=== PATIENT | male | born 1940 | race Caucasian/White ===

== ENCOUNTER → 2020-12-02 10:23 | Outpatient (BNVA) | payer OTHER, MEDICAID, SELFPAY | PROVIDERS: Family Provider Internal Medicine; PCP Internal Medicine Cardiovascular Disease; Visit Provider Urology | DX: N40.1 Benign prostatic hyperplasia with lower urinary tract symptoms (principal); N13.8 Other obstructive and reflux uropathy; R31.9 Hematuria, unspecified | CPT/HCPCS: 80048; 81003; 87086; 88112 ==

== ENCOUNTER 2020-12-23 12:52 | Outpatient (CLI) | payer MEDICARE, MEDICAID, SELFPAY ==
--- NOTE | 2020-12-23 13:30 | CT_ITS ---
WS: [id number] CT ABDOMEN PELVIS TECHNIQUE: Noncontrast CT of the abdomen and contrast-enhanced CT of the abdomen and pelvis with maria guadalupe nal and sagittal reformatted images. CLINICAL INFORMATION: INCREASED PSA AND BPH COMPARISON: None. DLP: 3999.[address] scans at [facility] use at least one of these dose optimization techniques: automat ed exposure control; mA and/or kV adjustment per patient size (includes targeted exams where dose is matched to clinical indication); or iterative reconstruction. FINDINGS: Heterogeneous enlarged prostate with indentation on the bladder measuring 5.4 x 5.5 CM. Prostate is h eterogeneous enhancing and nodular. Thickening of the seminal vesicles bilaterally. Diffuse bladder w all thickening consistent with bladder outlet obstruction. Indeterminate prominent 10 millimeter righ t periprostatic lymph node. Mild diffuse fatty infiltration liver. Splenic granulomas. Normal GE junction. Slight atelectasis in the lung bases. Normal portal vein and splenic vein. Cholelithiasis. No gallbladder wall thickening. Prominent calculus at the gallbladder neck measuring 2.0 cm. Adrenal glands are normal. Normal renal parenchymal enhancement. No hydronephrosis. No obstructing renal or ureteral calculi. Sigmoid diverticulosis. No evidence of acute diverticulitis. Normal appendix in the right lower quadr ant. Fatty atrophy of the pancreas. Mild pancreatic ductal dilatation. Pancreatic calcifications. Nor mal caliber abdominal aorta. Mild aortic calcification. No periaortic lymphadenopathy. No inguinal ly mphadenopathy. Moderate spondylitic changes lumbar spine. CT/CT abdomen pelvis wo/w [id number] IMPRESSION: 1. Enlarged enhancing nodular prostate with indentation on the bladder. Prosta te measures5.4 x 5.5 CM. Recommend correlation PSA. 2. Diffuse thickening of the seminal vesicles bilaterally. Indeterminate promi nent right periprostatic lymph node measuring 10 mm. 3. Cholelithiasis with prominent gallstone in the gallbladder neck measuring 2 cm. No gallbladder wall thickening. Gallbladder can be followed up with ultras ound. 4. Normal renal parenchymal enhancement. No hydronephrosis. Normal excretion o n the delayed imaging. 5. Mild diffuse bladder wall thickening consistent with bladder outlet obstruc tion.
[2020-12-23] MEDS: iohexol 300 mg/mL 100 mL Btl IV (13:53)
[2020-12-23 13:56] LABS: Anion Gap 16.7 (5-19); Blood Urea Nitrogen 7 mg/dL (8-23); Calcium 8.5 mg/dL (8.5-10.5); Carbon Dioxide 22 mmol/L (22-29); Chloride 87 mmol/L (98-107); Glucose 94 mg/dL (65-115); Osmolality Calculated 250 mOsm/kg (285-295); Potassium 4.7 mmol/L (3.5-5.1); Sodium 121 mmol/L (136-145)
== END 2020-12-23 12:53 | disposition home or self-care (01) ==
LOC: RAD 13:01
PROVIDERS: PCP Internal Medicine; Visit Provider Urology
DX: R97.20 Elevated prostate specific antigen [PSA] (principal); N40.1 Benign prostatic hyperplasia with lower urinary tract symptoms; N13.8 Other obstructive and reflux uropathy; N40.0 Benign prostatic hyperplasia without lower urinary tract symptoms; K80.20 Calculus of gallbladder without cholecystitis without obstruction; K80.80 Other cholelithiasis without obstruction
CPT/HCPCS: 36415; 74178; 80048; 84153

== ENCOUNTER 2020-12-31 12:44 | Emergency (ER) | payer MEDICARE, MEDICAID, SELFPAY ==
[2020-12-31] VITALS (8 sets, daily range): BP systolic 84–143; BP diastolic 46–64; PULSE 86–102; RESP 16–22; TEMP 36.4–36.9; O2SAT 92–99; BMI 30.6
--- NOTE | 2020-12-31 13:09 | ECG_ITS ---
[facility] ED Test Date: 2020-12-31 Pat Name: Toro Peralta Department: Room: Gender: Male Recreation Program Coordinator: : 1940 Requested By: Mayur Peacock Order Number: [id number] Ric MD: Oralia Daigle M.D. Measurements Intervals [place] Rate: 86 P: 54 [place]: 185 QRS: 59 QRSD: 85 T: 69 QT: 331 QTc: 396 Interpretive Statements SINUS RHYTHM Compared to ECG 10/24/2017 09:22:45 Ventricular premature complex(es) no longer present Electronically Signed On 01-01-2021 13:57:56 CDT by Oralia Daigle M.D. [id number]
--- NOTE | 2020-12-31 13:09 | XRR_ITS ---
PROCEDURE INFORMATION: Exam: XR Chest Exam date and time: 12/31/2020 1:09 PM Age: 80 years old Clinical indication: Shortness of breath; Additional info: Rule out pna TECHNIQUE: Imaging protocol: XR of the chest. Views: 1 view. COMPARISON: CR Chest 1 [place] [id number] 10/24/2017 9:31 AM FINDINGS: Lungs: Low lung volumes are seen. The lungs are otherwise clear No consolidation. Pleural spaces: Unremarkable. No pleural effusion. No pneumothorax. Heart/Mediastinum: Unremarkable. No cardiomegaly. Bones/joints: Unremarkable. XR/XR chest 1V portable [id number] IMPRESSION: No acute findings.
--- NOTE | 2020-12-31 13:13 | CT_ITS ---
WS: [id number] CT HEAD NONCONTRAST HISTORY: altered mental status TECHNIQUE: Contiguous axial imaging performed through the brain in 2.5 mm imaging. Bone and soft tiss ue windows. Sagittal and coronal reformats reviewed. All CT scans at [facility] use at le ast one of these dose optimization techniques: automated exposure control; mA and/or kV adjustment pe r patient size (includes targeted exams where dose is matched to clinical indication); or iterative r econstruction. DLP: 986.45 mGy.cm COMPARISON: 08/28/2017 No acute intracranial hemorrhage, midline shift or mass effect. Moderate atrophy and moderate small vessel ischemic changes. No evidence for an acute infarct. Ventricles: Ventricles and extra-axial spaces are very mildly prominent on the basis of atrophy. Paranasal sinuses: As visualized are clear. Mastoid air cells: Well pneumatized. Calvarium and scalp: No skull fracture. Soft tissue calcifications in the scalp. CT/CT head wo con* [id number] IMPRESSION: 1. No acute intracranial hemorrhage or edema. 2. Moderate atrophy and moderate small vessel ischemic changes. No acute findi ngs.
--- NOTE | 2020-12-31 13:16 | W.ED.RECABL ---
HPI - Recheck/Abnormal Lab/Rx General: Chief Complaint: Recheck/Abnormal Lab/Rx Stated Complaint: ABNORMAL LAB VALUES Time Seen by Provider: 12/31/20 12:49 History of Present Illness: HPI narrative: Patient is an 80-year-old male history of BPH presenting to the ED from [facility] for concerns of altered mental status x3 days. Per care home, patient patient has had reportedly low sodium level in the 120s for the last 3 days. In addition, patient has not been acting like himself. Earlier today, care home staff went to check on the patient noticed that patient had low blood pressure. EMS was alerted and patient was transferred to our hospital for evaluation. On arrival, history is limited by baseline cognitive status. Review of Systems Narrative: Unable to assess given unerlying cognitive impairment and physiological process PFS ED PFSH: Medical History (Updated 12/31/20 @ 15:08 by Mayur Peacock MD) BPH w urinary obs/LUTS Elevated PSA Hypertension Surgical History H/O cataract extraction BILATERAL H/O elbow surgery RIGHT H/O knee surgery LEFT H/O neck surgery H/O shoulder surgery Family History Mother , AT AGE 80 Hypertension Father , AT AGE 82 Heart disease Social History Alcohol intake: current Alcohol intake frequency: holidays/special occasions only Housing: Long-Term Marital status: Current occupational status: retired History of recent travel: No Physical Exam Narrative: EXAM NARRATIVE: Head: Atraumatic Eyes: PERRL, conjunctiva without injection ENT: Dry mucous membrane NECK: Supple without lymphadenopathy LUNGS: Coarse breath sonds b/l CV: RRR ABDOMEN: Soft, nontender in all quadrants, no guarding or rebound tenderness EXTREMITY: Normal ROM SKIN: Mild erythema over lower back NEURO: Awake and alert, moving extremities, occasionally answering questions and following commands, somnolent, GCS 13-14 PSYCH:Unable to assess BACK: No focal midline tenderness, no induration/erythema/obvious deformity, +mild intergluteal erythem/lumbar skin atophy and erythema without any signs of fluctuance or induration Procedures Central Line Placement Right IJ: Time Out Performed: Yes Patient Placed on Monitor/Pulse Ox: Yes MD Prep: mask Central Line Prep: Povidone-Iodine 1% Local Anesthetic: lidocaine 1% Amount of anesthesia used (mL): 4 Ultrasound Used for Placement: Yes Central Line Lumen Inserted: triple Post Procedure: sutured in place and good blood return Post Procedure X-Ray: tip of catheter in good position Patient Tolerated Procedure: well Complications: none Course Vital Signs: Vital signs: Vital Signs Temperature 98.4 F 12/31/20 19:54 Pulse Rate 88 12/31/20 19:54 Respiratory Rate 16 12/31/20 19:54 Blood Pressure 143/64 12/31/20 19:54 Pulse Oximetry 98 12/31/20 19:54 MDM - Recheck/Abnormal Lab/Rx MDM Narrative: Medical decision making narrative: Patient is an 80-year-old male with a history of BPH, chronic dementia, hypertension, recent hyponatriemia (120s x 3 days) to the emergency room for evaluation of altered mental status. On arrival, patient is to be confused and somnolent. Blood pressure of 80/40 on repeated reading patient is noted to be nearly tachycardic to the 100s with increased work of breathing, coarse breath sounds. Concern for sepsis, decision was started immediately to give patient fluids. Patient received 1 L of fluid. Patient was started on peripheral norepinephrine before a right IJ central line was placed for which patient started on 10 mcg of norepinephrine. Patient received empirically vancomycin and cefepime. Sodium was noted to be 122 consistent with prior presentation for the last [address] did not show any signs of acute vasogenic edema or brain bleed. XR chest negative for any consolidations or infiltrates. UA is consistent with UTI. Laboratory evaluation is significant for a lactic of 4, white count of 20, troponin elevation of 144, and proBNP of 4K. Cr of 4 and K of 5.6 consistent with mutisystem organ dysfunction and sepetic shock from sepsis likely urosepsis. On reassessment, patient is hemodynamically stable with blood pressure of >90SBP. He is more awake and alert currently. No increased work of breathing or desats. Decision was made to not intubate patient given history of DNR. Case was discussed with care home and family who agrees with transfer to [facility] in [place], [place] per conversation with Dr. Keven Chacon. ON reassessment, CT abd did not show any acute pathologies. Chronic indwelling meyer replaced today given bladder distension. Lactic acid improving from 4.3 to 4.2 Disposition: transfer to outside ED Lab Data: Labs: Lab Results 12/31/20 12/31/20 12/31/20 Range/Units 13:22 13:22 13:22 WBC 20.6 H (4.0-10.0) 10^3/ uL RBC 4.47 (4.1-5.3) 10^6/u L Hgb 14.3 (11.7-16.6) g/dL Hct 41.1 L (42.0-52.0) % MCV 91.9 (80-94) fL MCH 32.0 (28.0-34.0) pg MCHC 34.8 (30.0-36.0) g/dL RDW 13.9 (12.1-15.1) % Plt Count 175 (130-400) 10^3/c mm MPV 10.1 (7.4-10.4) fL Neut % (Auto) 85.2 % Lymph % (Auto) 2.5 % Piute % (Auto) 10.2 % Eos % (Auto) 0.2 % Baso % (Auto) 0.8 % Neut # (Auto) 17.53 H (1.8-7.7) 10^3/u L Lymph # (Auto) 0.5 L (0.8-4.8) 10^3/u L [place]ute # (Auto) 2.1 H (0.2-0.9) 10^3/u L Eos # (Auto) 0.0 (0.0-0.8) 10^3/u L Baso # (Auto) 0.2 H (0.0-0.1) 10^3/u L Nucleated RBC % (a uto) 0 % Nucleated RBCs # 0.0 /100WBC Specimen Type Sample Site ABG pH (7.35-7.45) ABG pCO2 (35-45) mmHg ABG pO2 (80.0-100.0) mmH g ABG HCO3 (22-26) mmol/L ABG Base Excess (-2.0-2.0) mmol/ L Julius Test Hematocrit (42-52) % O2 Delivery Device O2 Liters/Min % FiO2 % Custom Harvester ID Sodium 122 L (136-145) mmol/L Potassium 5.6 H (3.5-5.1) mmol/L Chloride 86 L (98-107) mmol/L Carbon Dioxide 13 L (22-29) mmol/L Anion Gap 28.6 H (5-19) BUN 46 H (8-23) mg/dL Creatinine 4.6 H (0.7-1.2) mg/dL GFR Calculation Not Reportable Glucose 101 (65-115) mg/dL Calculated Osmolal ity 266 L (285-295) mOsm/k g Lactate 4.3 H* (0.5-2.2) mmol/L Calcium 9.1 (8.5-10.5) mg/dL Total Bilirubin 1.0 (0.15-1.2) mg/dL AST 63 H (0-40) U/L ALT 33 (0-41) U/L Alkaline Phosphata se 76 (40-130) IU/L Troponin T Gen 5 n g/L (0-15) ng/L Troponin T 120 Min [place] (0-15) ng/L Delta Troponin T NT-Pro-B Natriuret Pep 4833 H (0-450) pg/mL Total Protein 6.6 (6.6-8.7) g/dL Albumin 3.6 (3.5-5.2) g/dL Globulin 3.0 (1.3-4.6) g/dL Lipase 8 L (13-60) U/L Urine Color (Yellow) Urine Appearance (CLEAR) Urine pH (5-7) Ur Specific Gravit y (1.005-1.030) Urine Protein (Negative) Urine Glucose (UA) (Normal) Urine Ketones (Negative) Urine Blood (Negative) Urine Nitrate (Negative) Urine Bilirubin (Negative) Urine Urobilinogen (Negative) mg/dL Ur Leukocyte Francoise ase (Negative) Urine RBC (0-2) /hpf Urine WBC (0-5) /hpf Ur Squamous Epith Cells (0-5) /hpf Triple Phos Pura ls /hpf Amorphous Sediment Urine Bacteria (NONE) /hpf SARS-CoV-2 Ag (Rap id) (Negative) 12/31/20 12/31/20 12/31/20 Range/Units 13:22 13:47 15:00 WBC (4.0-10.0) 10^3/ uL RBC (4.1-5.3) 10^6/u L Hgb (11.7-16.6) g/dL Hct (42.0-52.0) % MCV (80-94) fL MCH (28.0-34.0) pg MCHC (30.0-36.0) g/dL RDW (12.1-15.1) % Plt Count (130-400) 10^3/c mm MPV (7.4-10.4) fL Neut % (Auto) % Lymph % (Auto) % [place] % (Auto) % Eos % (Auto) % Baso % (Auto) % Neut # (Auto) (1.8-7.7) 10^3/u L Lymph # (Auto) (0.8-4.8) 10^3/u L [place] # (Auto) (0.2-0.9) 10^3/u L Eos # (Auto) (0.0-0.8) 10^3/u L Baso # (Auto) (0.0-0.1) 10^3/u L Nucleated RBC % (a uto) % Nucleated RBCs # /100WBC Specimen Type Arterial Sample Site Radial, right ABG pH 7.34 L (7.35-7.45) ABG pCO2 25.5 L (35-45) mmHg ABG pO2 81.6 (80.0-100.0) mmH g ABG HCO3 13.8 L (22-26) mmol/L ABG Base Excess -10.1 L (-2.0-2.0) mmol/ L Julius Test Pos Hematocrit 43.7 (42-52) % O2 Delivery Device Nc O2 Liters/Min 2.0 % FiO2 28.0 % Custom Harvester ID gllc Sodium (136-145) mmol/L Potassium (3.5-5.1) mmol/L Chloride (98-107) mmol/L Carbon Dioxide (22-29) mmol/L Anion Gap (5-19) BUN (8-23) mg/dL Creatinine (0.7-1.2) mg/dL GFR Calculation Glucose (65-115) mg/dL Calculated Osmolal ity (285-295) mOsm/k g Lactate (0.5-2.2) mmol/L Calcium (8.5-10.5) mg/dL Total Bilirubin (0.15-1.2) mg/dL AST (0-40) U/L ALT (0-41) U/L Alkaline Phosphata se (40-130) IU/L Troponin T Gen 5 n g/L 144 H* (0-15) ng/L Troponin T 120 Min [place] (0-15) ng/L Delta Troponin T NT-Pro-B Natriuret Pep (0-450) pg/mL Total Protein (6.6-8.7) g/dL Albumin (3.5-5.2) g/dL Globulin (1.3-4.6) g/dL Lipase (13-60) U/L Urine Color (Yellow) Urine Appearance (CLEAR) Urine pH (5-7) Ur Specific Gravit y (1.005-1.030) Urine Protein (Negative) Urine Glucose (UA) (Normal) Urine Ketones (Negative) Urine Blood (Negative) Urine Nitrate (Negative) Urine Bilirubin (Negative) Urine Urobilinogen (Negative) mg/dL Ur Leukocyte Francoise ase (Negative) Urine RBC (0-2) /hpf Urine WBC (0-5) /hpf Ur Squamous Epith Cells (0-5) /hpf Triple Phos Pura ls /hpf Amorphous Sediment Urine Bacteria (NONE) /hpf SARS-CoV-2 Ag (Rap id) Negative (Negative) 12/31/20 12/31/20 12/31/20 Range/Units 15:48 16:10 17:00 WBC (4.0-10.0) 10^3/ uL RBC (4.1-5.3) 10^6/u L Hgb (11.7-16.6) g/dL Hct (42.0-52.0) % MCV (80-94) fL MCH (28.0-34.0) pg MCHC (30.0-36.0) g/dL RDW (12.1-15.1) % Plt Count (130-400) 10^3/c mm MPV (7.4-10.4) fL Neut % (Auto) % Lymph % (Auto) % [place] % (Auto) % Eos % (Auto) % Baso % (Auto) % Neut # (Auto) (1.8-7.7) 10^3/u L Lymph # (Auto) (0.8-4.8) 10^3/u L [place] # (Auto) (0.2-0.9) 10^3/u L Eos # (Auto) (0.0-0.8) 10^3/u L Baso # (Auto) (0.0-0.1) 10^3/u L Nucleated RBC % (a uto) % Nucleated RBCs # /100WBC Specimen Type Sample Site ABG pH (7.35-7.45) ABG pCO2 (35-45) mmHg ABG pO2 (80.0-100.0) mmH g ABG HCO3 (22-26) mmol/L ABG Base Excess (-2.0-2.0) mmol/ L Julius Test Hematocrit (42-52) % O2 Delivery Device O2 Liters/Min % FiO2 % Custom Harvester ID Sodium (136-145) mmol/L Potassium (3.5-5.1) mmol/L Chloride (98-107) mmol/L Carbon Dioxide (22-29) mmol/L Anion Gap (5-19) BUN (8-23) mg/dL Creatinine (0.7-1.2) mg/dL GFR Calculation Glucose (65-115) mg/dL Calculated Osmolal ity (285-295) mOsm/k g Lactate 4.2 H* (0.5-2.2) mmol/L Calcium (8.5-10.5) mg/dL Total Bilirubin (0.15-1.2) mg/dL AST (0-40) U/L ALT (0-41) U/L Alkaline Phosphata se (40-130) IU/L Troponin T Gen 5 n g/L (0-15) ng/L Troponin T 120 Min [place] 123.5 H (0-15) ng/L Delta Troponin T TNP NT-Pro-B Natriuret Pep (0-450) pg/mL Total Protein (6.6-8.7) g/dL Albumin (3.5-5.2) g/dL Globulin (1.3-4.6) g/dL Lipase (13-60) U/L Urine Color Dark yellow (Yellow) Urine Appearance Turbid (CLEAR) Urine pH 9 H (5-7) Ur Specific Gravit y 1.010 (1.005-1.030) Urine Protein Trace (Negative) Urine Glucose (UA) Norm (Normal) Urine Ketones Negative (Negative) Urine Blood 3+ H (Negative) Urine Nitrate Negative (Negative) Urine Bilirubin Neg (Negative) Urine Urobilinogen Norm (Negative) mg/dL Ur Leukocyte Francoise ase 2+ H (Negative) Urine RBC >100 H (0-2) /hpf Urine WBC 5-10 H (0-5) /hpf Ur Squamous Epith Cells None (0-5) /hpf Triple Phos Pura ls 5-10 H /hpf Amorphous Sediment Not Reportable Urine Bacteria 4+ H (NONE) /hpf SARS-CoV-2 Ag (Rap id) (Negative) Imaging Data^: Other Imaging: Radiologist's impression: [address] [id number] Scan ReportSigned Patient: Toro Peralta #: [id number]: 1940Acct#:[id number]/Sex: 80 / MADM Date: 12/31/20Loc: ERRoom/Bed:Attending Dr: Ordering Provider/Ordering MD: Mayur Peacock MD Date of Service: 12/31/20 Procedure(s): CT abdomen pelvis wo con [id number] Accession Number(s): [id number] Report Number: [id number] PROCEDURE INFORMATION: Exam: CT Abdomen And Pelvis Without Contrast Exam date and time: 12/31/2020 4:59 PM Age: 80 years old Clinical indication: Abdominal pain; Prior surgery; Surgery type: Back; Additional info: Evaluate for lower abd pain before transfer TECHNIQUE: Imaging protocol: Computed tomography of the abdomen and pelvis without contrast. Radiation optimization: All CT scans at this facility use at least one of these dose optimization techniques: automated exposure control; mA and/or kV adjustment per patient size (includes targeted exams where dose is matched to clinical indication); or iterative reconstruction. COMPARISON: CT abdomen pelvis wo/w [id number] 12/23/2020 1:49 PM RADIATION DOSE METRICS: Total DLP (mGy-cm): 1384.48 FINDINGS: Chest: Heavy coronary artery calcifications are seen. No pericardial effusions are present. Liver: Normal. No mass. Gallbladder and bile ducts: Normal. There is a calcified stone 19.7 mm x 19 mm. . No ductal dilation. Pancreas: Normal. No ductal dilation. Spleen: Calcified splenic granulomas are seen.. No splenomegaly. Adrenal glands: Normal. No mass. Kidneys and ureters: Normal. No hydronephrosis. Stomach and bowel: There is sigmoid colon diverticulosis without diverticulitis. No obstruction. No mucosal thickening. Appendix: No evidence of appendicitis. Intraperitoneal space: Unremarkable. No free air. No significant fluid collection. Vasculature: Unremarkable. No abdominal aortic aneurysm. Lymph nodes: Unremarkable. No enlarged lymph nodes. Urinary bladder: Well filled with fluid. A collection of air is seen in the upper aspect.. Reproductive: Unremarkable as visualized. Bones/joints: Lumbar spine osteoarthritis No acute fracture. Soft tissues: Unremarkable. CT/CT abdomen pelvis wo con [id number] IMPRESSION: 1. Sigmoid colon diverticulosis without diverticulitis. 2. Solitary gallstone. 3. Dilated urinary bladder with fluid and air. 4. Heavy coronary artery calcifications Radiation Dose CTDIVOL = (mGy): DLP = 1384.48 (mGy-cm) Dictated By:Kristen Ledesma By:Kristen Ledesma Date/Time:12/31/[address] [id number] ReportSigned Patient: Toro Peralta #: [id number]: 1940Acct#:[id number]/Sex: 80 / MADM Date: 12/31/20Loc: ERRoom/Bed:Attending Dr: Ordering Provider/Ordering MD: Mayur Peacock MD Date of Service: 12/31/20 Procedure(s): XR chest 1V portable [id number] Accession Number(s): [id number] Report Number: [id number] WS: [id number] PORTABLE CHEST HISTORY: central line placement COMPARISON: 12/31/2020 Interval placement of a RIGHT central line. RIGHT jugular line with tip in the mid SVC. No complications are evident. Lungs are clear and well expanded. No pleural effusion or pneumothorax. Cardiac size: Normal. Mediastinum/Aorta: Normal mediastinum. No osseous abnormality seen. XR/XR chest 1V portable [id number] IMPRESSION: Uncomplicated RIGHT central line placement. Dictated By:Charlee Betancourt DOSigned By:Charlee Betancourt DOSigned Date/Time:12/31/20 1530DD/ [address], [place] [address]BN Scan ReportSigned Patient: Toro Peralta #: [id number]: 1940Acct#:[id number]/Sex: 80 / MADM Date: 12/31/20Loc: ERRoom/Bed:Attending Dr: Ordering Provider/Ordering MD: Mayur Peacock MD Date of Service: 12/31/20 Procedure(s): CT head wo con* [id number] Accession Number(s): [id number] Report Number: [id number] WS: [id number] CT HEAD NONCONTRAST HISTORY: altered mental status TECHNIQUE: Contiguous axial imaging performed through the brain in 2.5 mm imaging. Bone and soft tissue windows. Sagittal and coronal reformats reviewed. All CT scans at [facility] use at least one of these dose optimization techniques: automated exposure control; mA and/or kV adjustment per patient size (includes targeted exams where dose is matched to clinical indication); or iterative reconstruction. DLP: 986.45 mGy.cm COMPARISON: 08/28/2017 No acute intracranial hemorrhage, midline shift or mass effect. Moderate atrophy and moderate small vessel ischemic changes. No evidence for an acute infarct. Ventricles: Ventricles and extra-axial spaces are very mildly prominent on the basis of atrophy. Paranasal sinuses: As visualized are clear. Mastoid air cells: Well pneumatized. Calvarium and scalp: No skull fracture. Soft tissue calcifications in the scalp. CT/CT head wo con* [id number] IMPRESSION: 1. No acute intracranial hemorrhage or edema. 2. Moderate atrophy and moderate small vessel ischemic changes. No acute findings. Dictated By:Charlee Betancourt DOSigned By:Charlee Betancourt DOSigned Date/Time:12/31/20 1456DD/ [address], [place] [address]OChs ReportSigned Patient: Toro Perlata #: [id number]: 1940Acct#:[id number]/Sex: 80 / MADM Date: 12/31/20Loc: ERRoom/Bed:Attending Dr: Ordering Provider/Ordering MD: Mayur Peacock MD Date of Service: 12/31/20 Procedure(s): XR chest 1V portable [id number] Accession Number(s): [id number] Report Number: [id number] PROCEDURE INFORMATION: Exam: XR Chest Exam date and time: 12/31/2020 1:09 PM Age: 80 years old Clinical indication: Shortness of breath; Additional info: Rule out pna TECHNIQUE: Imaging protocol: XR of the chest. Views: 1 view. COMPARISON: CR Chest 1 [place] [id number] 10/24/2017 9:31 AM FINDINGS: Lungs: Low lung volumes are seen. The lungs are otherwise clear No consolidation. Pleural spaces: Unremarkable. No pleural effusion. No pneumothorax. Heart/Mediastinum: Unremarkable. No cardiomegaly. Bones/joints: Unremarkable. XR/XR chest 1V portable [id number] IMPRESSION: No acute findings. Dictated By:Kristen Ledesma By:Kristen Ledesma Date/Time:12/31/20 1358DD/ 135 Critical Care Time Critical Care Time: Attestation: Given the high probability of imminent or life threatening deterioration of the patient?s condition without intervention, the patient was immediately assessed by myself and the nurse, and cardiac monitoring initiated. The patient was also placed on oxygen and continuous pulse oximetry initiated. During the course of the patient?s stay, I spent a considerable amount of time at the bedside performing serial re-evaluations of the patient?s hemodynamic and clinical status because of the recognized potential threat to life or limb in this condition. Clinical management of this patient involved high complexity decision making to assess, manipulate, and support vital organ system failure. I then had a chance to review all of the available laboratory and radiographic studies obtained today, and I also reviewed old records available to me at the time. Sequential vital signs were obtained. Critical care time noted below was time spent engaged in work directly related to the individual patient?s care, not including time performing procedures; however it does include time spent at the immediate bedside or elsewhere on the floor or unit. TOTAL CRITICAL CARE TIME ELAPSED: 34. BODY SYSTEM AT HIGHEST RISK: Hematological Discharge Plan Discharge Patient Disposition: Admitted As Inpatient Clinical Impression: Septic shock, Acute exacerbation of CHF (congestive heart failure), Elevated troponin I level, Altered mental status Condition: Stable Coding Level of Care Code ED [employer]el Manager for Jen Salcido
--- NOTE | 2020-12-31 13:26 | PC.PHAR ---
PT IS FROM [facility] [phone] TUNG FROM [facility] STATES THE PT GOT HIS AM MEDS
[2020-12-31 13:33] LABS: Basophils # 0.2 10^3/uL (0.0-0.1); Basophils % 0.8 %; Eosinophils % 0.2 %; Hematocrit 41.1 % (42.0-52.0); Hemoglobin 14.3 g/dL (11.7-16.6); Lymphocytes # 0.5 10^3/uL (0.8-4.8); Lymphocytes % 2.5 %; Mean Corpuscular HGB Conc 34.8 g/dL (30.0-36.0); Mean Corpuscular Volume 91.9 fL (80-94); Mean Platelet Volume 10.1 fL (7.4-10.4); Monocytes # 2.1 10^3/uL (0.2-0.9); Monocytes % 10.2 %; Neutrophils # 17.53 10^3/uL (1.8-7.7); Neutrophils % 85.2 %; Nucleated Red Blood Cells % 0 %; Platelet Count 175 10^3/cmm (130-400); Positive M 1; Red Blood Count 4.47 10^6/uL (4.1-5.3); Red Cell Distribution Width 13.9 % (12.1-15.1); White Blood Count 20.6 10^3/uL (4.0-10.0)
[2020-12-31] MEDS: cefepime 1,000 MG in sodium chloride 0.9% (plus) 50 ML 100 MG IV (13:50)
[2020-12-31] MEDS: sodium chloride 0.9% 1,000 ML 2000 ML IV (13:51)
[2020-12-31 13:55] LABS: ABG PCO2 25.5 mmHg (35-45); ABG PH Result 7.34 (7.35-7.45); Arterial Blood Gas Hematocrit 43.7 % (42-52); Base Excess ABG -10.1 mmol/L (-2.0-2.0); Blood Gas Allen Test Pos; Blood Gas Sample Site Radial, right; Blood Gas Sample Type Arterial; HCO3 ABG 13.8 mmol/L (22-26); Oxygen Device NC; PO2 ABG 81.6 mmHg (80.0-100.0)
[2020-12-31 13:58] LABS: Troponin T (5th) Once 144 ng/L (0-15)
[2020-12-31 14:01] LABS: Lactate (Lactic Acid level) 4.3 mmol/L (0.5-2.2)
[2020-12-31 14:04] LABS: Alanine Aminotransferase 33 U/L (0-41); Albumin Level 3.6 g/dL (3.5-5.2); Alkaline Phosphatase 76 IU/L (40-130); Anion Gap 28.6 (5-19); Aspartate Amino Transferase 63 U/L (0-40); Blood Urea Nitrogen 46 mg/dL (8-23); Calcium 9.1 mg/dL (8.5-10.5); Carbon Dioxide 13 mmol/L (22-29); Chloride 86 mmol/L (98-107); Glucose 101 mg/dL (65-115); Lipase 8 U/L (13-60); NT Pro B Type Natriuretic Pept 4833 pg/mL (0-450); Osmolality Calculated 266 mOsm/kg (285-295); Potassium 5.6 mmol/L (3.5-5.1); Sodium 122 mmol/L (136-145); Total Protein 6.6 g/dL (6.6-8.7)
--- NOTE | 2020-12-31 14:23 | XR_ITS ---
WS: [id number] PORTABLE CHEST HISTORY: central line placement COMPARISON: 12/31/2020 Interval placement of a RIGHT central line. RIGHT jugular line with tip in the mid SVC. No complicati ons are evident. Lungs are clear and well expanded. No pleural effusion or pneumothorax. Cardiac size: Normal. Mediastinum/Aorta: Normal mediastinum. No osseous abnormality seen. XR/XR chest 1V portable [id number] IMPRESSION: Uncomplicated RIGHT central line placement.
[2020-12-31 14:28] LABS: Slide Review Slide Review Perform
[2020-12-31] MEDS: vancomycin 1,000 MG in sodium chloride 0.9% 250 ML 250 MG IV (15:00)
[2020-12-31 15:52] LABS: SARS Covid-2 Antigen Negative (Negative)
--- NOTE | 2020-12-31 16:22 | ECG_ITS ---
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 Measurements Intervals [place] Rate: 103 P: 11 AR: 196 QRS: 59 QRSD: 80 T: 63 QT: 300 QTc: 394 Interpretive Statements SINUS TACHYCARDIA ABNORMAL RHYTHM ECG Compared to ECG 12/31/2020 14:18:02 Sinus rhythm no longer present Electronically Signed On 01-01-2021 16:47:37 CDT by Oralia Daigle M.D. [id number]
[2020-12-31 16:46] LABS: Add Urine Microscopic? YES; Bilirubin Urine Neg (Negative); Blood Urine 3+ (Negative); Glucose Urine UA Norm (Normal); Ketones Urine Negative (Negative); Leukocyte Esterase Urine 2+ (Negative); Nitrate Urine Negative (Negative); Protein Urine Trace (Negative); Urine Appearance Turbid (CLEAR); Urine Color Dark Yellow (Yellow); Urobilinogen Urine Norm (Negative); pH Urine 9 (5-7)
[2020-12-31 16:51] LABS: Add Urine Culture? Yes; Bacteria Urine 4+ /hpf; RBC Urine >100 /hpf (0-2)
--- NOTE | 2020-12-31 16:59 | CTR_ITS ---
PROCEDURE INFORMATION: Exam: CT Abdomen And Pelvis Without Contrast Exam date and time: 12/31/2020 4:59 PM Age: 80 years old Clinical indication: Abdominal pain; Prior surgery; Surgery type: Back; Additional info: Evaluate for lower abd pain before transfer TECHNIQUE: Imaging protocol: Computed tomography of the abdomen and pelvis without contrast. Radiation optimization: All CT scans at this facility use at least one of these dose optimization techniques: automated exposure control; mA and/or kV adjustment per patient size (includes targeted exams where dose is matched to clinical indication); or iterative reconstruction. COMPARISON: CT abdomen pelvis wo/w [id number] 12/23/2020 1:49 PM RADIATION DOSE METRICS: Total DLP (mGy-cm): 1384.48 FINDINGS: Chest: Heavy coronary artery calcifications are seen. No pericardial effusions are present. Liver: Normal. No mass. Gallbladder and bile ducts: Normal. There is a calcified stone 19.7 mm x 19 mm. . No ductal dilation. Pancreas: Normal. No ductal dilation. Spleen: Calcified splenic granulomas are seen.. No splenomegaly. Adrenal glands: Normal. No mass. Kidneys and ureters: Normal. No hydronephrosis. Stomach and bowel: There is sigmoid colon diverticulosis without diverticulitis. No obstruction. No mucosal thickening. Appendix: No evidence of appendicitis. Intraperitoneal space: Unremarkable. No free air. No significant fluid collection. Vasculature: Unremarkable. No abdominal aortic aneurysm. Lymph nodes: Unremarkable. No enlarged lymph nodes. Urinary bladder: Well filled with fluid. A collection of air is seen in the upper aspect.. Reproductive: Unremarkable as visualized. Bones/joints: Lumbar spine osteoarthritis No acute fracture. Soft tissues: Unremarkable. CT/CT abdomen pelvis wo con [id number] IMPRESSION: 1. Sigmoid colon diverticulosis without diverticulitis. 2. Solitary gallstone. 3. Dilated urinary bladder with fluid and air. 4. Heavy coronary artery calcifications Radiation Dose CTDIVOL = (mGy): DLP = 1384.48 (mGy-cm)
[2020-12-31 17:00] LABS: Troponin 5 2HR 123.5 ng/L (0-15)
[2020-12-31] MEDS: azithromycin 500 MG in sodium chloride 0.9% 250 ML 250 MG IV (17:02)
[2020-12-31 17:54] LABS: Lactate (Lactic Acid level) 4.2 mmol/L (0.5-2.2)
--- NOTE | 2021-01-01 05:05 | PC.NURSE ---
lab reports 2/4 bottles positive for gram negative Rods. This nurse reported this to DR. Lizama who requested I call [facility] the patient was transferred to report this. This nurse called [facility] and relayed this information to Delonte in the ICU
[2021-01-01 15:01] LABS: Coronavirus Test Green County Not Detected
--- NOTE | 2021-01-02 16:59 | PC.NURSE ---
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
== END 2020-12-31 20:00 | disposition admitted as inpatient to this hospital (09) ==
PROVIDERS: Emergency Provider Emergency Medicine; PCP Internal Medicine
DX: A41.9 Sepsis, unspecified organism (principal); R65.21 Severe sepsis with septic shock; I11.0 Hypertensive heart disease with heart failure; I50.9 Heart failure, unspecified; R77.8 Other specified abnormalities of plasma proteins; R41.82 Altered mental status, unspecified; Z20.822 Contact with and (suspected) exposure to COVID-19
CPT/HCPCS: 36556; 36592; 36600; 70450; 71045; 74176; 80053; 81001; 82803; 83605; 83690; 83880; 84484; 85025; 87040; 87077; 87186; 87205; 87426; 87635; 93005; 96365; 96366; 96367; 99285; J0456; J0692; J3370; J7030; J7050

== ENCOUNTER 2021-09-01 18:39 | Emergency (ER) | payer MEDICARE, MEDICAID, SELFPAY ==
[2021-09-01 20:15] VITALS: BP 113/68; PULSE 61; RESP 15; TEMP 36.7; O2SAT 98; BMI 34.3
--- NOTE | 2021-09-01 21:40 | ED_ITS ---
HPI - Male Genitourinary General: Chief complaint: Urogenital-Male Stated complaint: URINARY CATHETER CAME OUT Time Seen by Provider: 09/01/21 21:37 Source: patient and EMS Mode of arrival: EMS Limitations: no limitations History of Present Illness: 81-year-old male is here from skilled nursing with history of chronic urinary retention states that he has a chronic indwelling Stokes. He states that he had pulled his pants up tonight Pulled his Stokes out. Patient sent here from the skilled nursing to have his Stokes replaced he has no complaints at this time. Associated symptoms: Deny dysuria, nausea or vomiting Review of Systems Const: Denies: fever(s), chills, body aches or change in appetite Eyes: Denies: blurry vision or eye discomfort ENMT: Denies: throat pain or dental pain Card: Denies: chest pain Resp: Denies: dyspnea GI: Denies: abdominal pain, nausea, vomiting or diarrhea : Denies: dysuria Musc: Denies: neck pain or back pain Skin/Breast: Denies: rash Neuro: Denies: headache(s) Psych: Denies: depression Evans/Lymph: Denies: easy bruising All/Imm: Denies: urticaria PFSH ED PFSH: Medical History BPH w urinary obs/LUTS Elevated PSA Hypertension Urinary retention Surgical History H/O cataract extraction BILATERAL H/O elbow surgery RIGHT H/O knee surgery LEFT H/O neck surgery H/O shoulder surgery Family History Mother , AT AGE 80 Hypertension Father , AT AGE 82 Heart disease Social History Smoking and tobacco status: current some day smoker Alcohol intake: current Alcohol intake frequency: holidays/special occasions only Housing: [facility] Marital status: Current occupational status: retired History of recent travel: No Physical Exam Const: COMMON NORMALS: no acute distress, patient oriented x3 and healthy appearing HENMT: COMMON NORMALS: normocephalic and atraumatic HEAD & SCALP: normoceph alic and atraumatic Eye: COMMON NORMALS: Equal, round and reactive pupils present and EOMs intact bilaterally PUPIL: Yes Equal, round and reactive pupils present Neck/C-Spine: COMMON NORMALS: full ROM and supple Chest: COMMONS NORMALS: normal inspection of the chest and normal palpation of entire chest wall Resp: COMMON NORMALS: normal respiratory effort, No retractions, No use of accessory muscles and clear to auscultation bilaterally AUSCULTATION: clear to auscultation bilaterally Cardio: COMMON NORMALS: regular rate, regular rhythm and No murmurs present (Cardio) RATE: regular rate RHYTHM: regular rhythm GI: COMMON NORMALS: Normal to inspection, nondistended, normoactive bowel sounds present, Soft to palpation, non-tender and no masses PALPATION: Yes Soft to palpation Extremity: COMMON NORMALS: normal to inspection and full ROM Neuro: COMMON NORMALS: patient oriented x3, moves all extremities and no focal motor deficits Psych: COMMON NORMALS: mental status grossly normal, Normal thought process present and cooperative THOUGHT PROCESS: Normal thought process present Skin: COMMON NORMALS: no rashes or lesions noted and no wounds GENERAL SKIN EXAM: no rashes or lesions noted Course Vital Signs: Vital signs: Vital Signs Temperature 98.1 F 09/01/21 20:15 Pulse Rate 56 L 09/01/21 21:53 Respiratory Rate 16 09/01/21 21:53 Blood Pressure 137/62 09/01/21 21:53 Pulse Oximetry 97 09/01/21 21:53 MDM - Male Medical Decision Making Patient presents after dislodgment of his catheter. He refused to have his cath replaced as he states has been urinating fine since its been out. He did not urinate. Bladder scan showed roughly 200 mL in his bladder per patient request will not replace the Stokes he is to follow-up with Dr. García will discharge back to the skilled nursing. Discharge Plan Discharge Patient Disposition: Home Clinical Impression: Dislodged Stokes catheter Condition: Stable Prescriptions: No Action cyanocobalamin (vitamin B-12) 500 mcg tablet 500 mcg PO DAILY@08 0RF divalproex 250 mg tablet,delayed release (DR/EC) 750 mg PO BEDTIME 0RF donepezil 10 mg tablet 10 mg PO DAILY@20 0RF fluticasone propionate 50 mcg/actuation spray,suspension 1 spray intranasal DAILY 0RF Rx Instructions: administer into each nostril acetaminophen [Tylenol] 325 mg tablet 650 mg PO TID 0RF dextromethorphan-guaifenesin [Ultra Tuss Safe] 10-100 mg/5 mL syrup 10 ml PO Q6H PRN (Reason: COUGH) 0RF clonidine HCl 0.1 mg tablet 0.1 mg PO Q6H PRN (Reason: Hypertension) 0RF Rx Instructions: FOR SBP >160 RECHECK 15-20 MINS AFTER ADMIN aripiprazole [Abilify] 2 mg tablet 2 mg PO DAILY@20 0RF aspirin 81 mg tablet,delayed release (DR/EC) 81 mg PO DAILY@08 0RF meloxicam 7.5 mg tablet 7.5 mg PO DAILY@08 0RF albuterol sulfate 90 mcg/actuation HFA aerosol inhaler 2 puff inhalation Q4H PRN (Reason: Shortness Of Breath) 0RF fluticasone propion-salmeterol [Advair Diskus] 100-50 mcg/dose blister with device 1 inh inhalation BID@08,20 0RF Spiriva with HandiHaler 18 mcg capsule, w/inhalation device 1 cap inhalation DAILY@08 0RF Rx Instructions: puncture 1 cap using device; one dose = 2 inhalations triamcinolone acetonide 0.1 % cream 1 applic topical TID PRN (Reason: UNKNOWN) 0RF Rx Instructions: APPLY THIN LAYER nystatin 100,000 unit/gram powder 1 applic topical DAILY 0RF metoprolol tartrate 50 mg tablet 50 mg PO DAILY 0RF Ocuvite Adult 50 Plus 250-5-1 mg capsule 1 cap PO DAILY 0RF oxycodone 5 mg tablet 5 mg PO Q6H PRN0RF pantoprazole [address] for susp in packet 40 mg PO DAILY 0RF sucralfate 100 mg/mL suspension 10 ml PO QID 0RF Rx Instructions: swish in mouth and swallow; use after food/drink benzonatate [Tessalon Perles] 100 mg capsule 100 mg PO TID PRN0RF diclofenac sodium [Voltaren Arthritis Pain] 1 % gel 4 g topical TID PRN0RF Rx Instructions: apply to single elbow, wrist or hand; for hand includes palm/fingers/back of hand ramipril [Altace] 10 mg capsule 10 mg PO DAILY 0RF donepezil 5 mg tablet 5 mg PO DAILY 0RF tamsulosin 0.4 mg capsule 0.4 mg PO DAILY 0RF loperamide [Imodium A-D] 2 mg capsule 2 mg PO Q6H PRN0RF furosemide 40 mg tablet 40 mg PO DAILY 0RF sulfamethoxazole-trimethoprim 800-160 mg tablet 1 tab PO BID Qty: 30 0RF albuterol sulfate 90 mcg/actuation Hfa Aerosol Inhaler 2 puff INHALATION QID 0RF Rx Instructions: FOR 5 DAYS (END DATE 01/03/21) Tylenol 325 mg Tablet 650 mg PO Q4H PRN (Reason: Pain) 0RF gabapentin 400 mg Capsule 400 mg PO TID 0RF Tessalon Perles 100 mg Capsule 200 mg PO TID PRN (Reason: Cough) 0RF Discharge Orders: Discharge ED (Routine); Ordered 09/01/21 Ordered By: Jen Lizama Referrals: Fco Pierce, [Primary Care Provider] - Discharge Diet: Advance as tolerated Discharge Activity: Resume usual activity Patient Instructions: Stokes Catheter Placement and Care (ED) Coding Level of Care Code ED Senior Systems Developer for Jen Fwd Exam Comprehensive
[2021-09-01 21:53] VITALS: BP 137/62; PULSE 56; RESP 16; O2SAT 97
[2021-09-01] MEDS: lidocaine 2% Urojet 20 mL TOPICAL (23:24)
[2021-09-02 00:46] VITALS: BP 143/84; PULSE 57; RESP 16; O2SAT 95
== END 2021-09-02 00:48 | disposition home or self-care (01) ==
PROVIDERS: Emergency Provider Emergency Medicine; PCP Internal Medicine
DX: T83.021A Displacement of indwelling urethral catheter, initial encounter (principal); Y84.6 Urinary catheterization as the cause of abnormal reaction of the patient, or of later complication, without mention of misadventure at the time of the procedure; N40.1 Benign prostatic hyperplasia with lower urinary tract symptoms; N13.8 Other obstructive and reflux uropathy; I10 Essential (primary) hypertension
CPT/HCPCS: 99282

== ENCOUNTER 2021-09-11 17:08 | Emergency (ER) | payer MEDICARE, MEDICAID, SELFPAY ==
[2021-09-11] VITALS (11 sets, daily range): BP systolic 119–185; BP diastolic 63–97; PULSE 60–84; RESP 18; TEMP 36.6; O2SAT 92–98; BMI 34.3
--- NOTE | 2021-09-11 17:52 | ED_ITS ---
HPI - Male Genitourinary General: Chief complaint: Urogenital-Male Stated complaint: catheter issues Time Seen by Provider: 09/11/21 17:40 History of Present Illness: Patient is a 81-year-old male comes to the ED with urinary retention. Patient says today he is only urinated just a little bit this morning and has been unable to urinate anymore the rest of the day. He is having pain in his bladder and feels like he needs to urinate. Patient had a Meyer catheter in place but it was pulled out back on September 01 and he came to the ED at that time. He refused getting Meyer catheter replaced at that time and he was urinating fine all the way up until today. The staff at the intermediate tried to put Meyer catheter in several times today and even tried using one of the smallest catheter tubes that he had and were unsuccessful. patient says he does have an appoint with Dr. García in September. Associated symptoms: Deny dysuria, hematuria, nausea or vomiting Review of Systems Const: Denies: fever(s), chills or fatigue Eyes: Denies: change in vision or eye discomfort ENMT: Denies: throat pain, odynophagia, nasal discharge or nasal congestion Card: Denies: chest pain, palpitations, edema, swelling of feet/ankles, dyspnea on exertion or orthopnea Resp: Denies: dyspnea, productive cough or non-productive cough GI: Denies: abdominal pain, nausea, vomiting, diarrhea, constipation or hematochezia : Reports: oliguria (Unable to urinate today); Denies: flank pain, difficulty urinating, dysuria or hematuria Musc: Denies: neck pain, back pain or extremity swelling Skin/Breast: Denies: rash or new lesions Neuro: Denies: headache(s), numbness in extremities or weakness in extremities PFSH ED PFSH: Medical History BPH w urinary obs/LUTS Elevated PSA Hypertension Urinary retention Surgical History H/O cataract extraction BILATERAL H/O elbow surgery RIGHT H/O knee surgery LEFT H/O neck surgery H/O shoulder surgery Family History Mother , AT AGE 80 Hypertension Father , AT AGE 82 Heart disease Social History Smoking and tobacco status: current some day smoker Alcohol intake: current Alcohol intake frequency: holidays/special occasions only Housing: Alf Marital status: Current occupational status: retired History of recent travel: No Physical Exam Const: COMMON NORMALS: patient oriented x3 and alert GENERAL APPEARANCE: cooperative HENMT: COMMON NORMALS: normocephalic HEAD & SCALP: normocephalic MOUTH: Normal oral and palatal mucosa present THROAT: posterior oropharynx normal and uvula midline Neck/C-Spine: COMMON NORMALS: supple GENERAL: Yes normal visual inspection Resp: COMMON NORMALS: normal respiratory effort, No retractions, No use of accessory muscles and clear to auscultation bilaterally AUSCULTATION: clear to auscultation bilaterally Cardio: COMMON NORMALS: regular rate, regular rhythm, S1 normal heart sound present, S2 normal heart sound present, No gallops present (Cardio), No clicks present (Cardio), No murmurs present (Cardio) and Peripheral pulses 2+ throughout RATE: regular rate RHYTHM: regular rhythm HEART SOUNDS: S1 normal heart sound present and S2 normal heart sound present PERIPHERAL PULSES: Peripheral pulses 2+ throughout GI: COMMON NORMALS: Normal to inspection, nondistended, normoactive bowel sounds present, Soft to palpation, non-tender and no masses PALPATION: Yes Soft to palpation and Yes Bladder palpation abnormal : COMMON NORMALS: Yes no CVA tenderness BLADDER/KIDNEY EXAM: Yes no CVA tenderness and Yes Bladder palpation abnormal Bladder abnormal details: tender and distended midway to the umbilicus Back/Pelvis: COMMON NORMALS: no CVA tenderness Extremity: COMMON NORMALS: normal to inspection Neuro: COMMON NORMALS: patient oriented x3 and moves all extremities SENSORIUM/ORIENTATION: Yes alert Skin: GENERAL SKIN EXAM: dry skin Course ED course: The nurse tried to place Meyer cath was unsuccessful. Dr. Lizama and went in and attempted to place Meyer cath and was unable to do it. Reevaluation(s): Reevaluation #1: Dr. García came in and was able to perform the Meyer catheter and get it in place. Dr. García told me he would like to see patient in the clinic within the next 7 to 10 days. Recommend getting a UA and seeing with the results that is and then he can be put on antibiotic if needed. I went and checked on patient after procedure and he said he feels a lot better and his bladder pain and distention has improved greatly. Time: 21:35 Consultations: Consultation #1: I contacted Dr. García and told about patient case and how we are having difficulty placing Meyer cath on patient. Dr. García told me to get the cath cart ready in patient's room and he was coming to the ED to perform Meyer cath. Time: 20:25 Vital Signs: Vital signs: Vital Signs Temperature 97.8 F 09/11/21 17:17 Pulse Rate 67 09/11/21 22:45 Respiratory Rate 18 09/11/21 22:45 Blood Pressure 148/78 09/11/21 22:45 Pulse Oximetry 95 09/11/21 22:45 [facility] - Male Medical Decision Making Patient is a 81-year-old male comes to the ED with acute urinary retention. The nurse tried to place Meyer cath was unsuccessful. Dr. Lizama and went in and attempted to place Meyer cath and was unable to do it. I contacted Dr. García and told about patient case. Dr. García came in and was able place meyer catheter. Patient had immediate relief and felt a lot better after Meyer catheter placed. I placed an order with case management for patient to be referred to see Dr. García in the next 7 to 10 days for reevaluation per Anthony blum's request. UA showed some signs of infection so patient was put on antibiotic. He was stable for discharge back to intermediate. Lab Data Laboratory Results Urine Color Yellow (Yellow) 09/11/21 21:50 Urine Appearance Sl hazy (CLEAR) 09/11/21 21:50 Urine pH 6.5 (5-7) 09/11/21 21:50 Ur Specific [place] 1.010 (1.005-1.030) 09/11/21 21:50 Urine Protein 1+ (Negative) H 09/11/21 21:50 Urine Glucose (UA) Norm (Normal) 09/11/21 21:50 Urine Ketones Negative (Negative) 09/11/21 21:50 Urine Blood 3+ (Negative) H 09/11/21 21:50 Urine Nitrate Negative (Negative) 09/11/21 21:50 Urine Bilirubin Neg (Negative) 09/11/21 21:50 Urine Urobilinogen Norm mg/dL (Negative) 09/11/21 21:50 Ur Leukocyte Esterase 2+ (Negative) H 09/11/21 21:50 Urine RBC 15-25 /hpf (0-2) H 09/11/21 21:50 Urine WBC >100 /hpf (0-5) H 09/11/21 21:50 Ur Squamous Epith Cells 0-4 /hpf (0-5) H 09/11/21 21:50 Amorphous Sediment Not Reportable 09/11/21 21:50 Urine Bacteria 2+ /hpf (NONE) H 09/11/21 21:50 Discharge Plan Discharge Patient Disposition: Home Clinical Impression: Acute urinary retention Condition: Stable Prescriptions: New cefdinir 300 mg capsule 300 mg PO BID 10 Days Qty: 20 0RF No Action cyanocobalamin (vitamin B-12) 500 mcg tablet 500 mcg PO DAILY@08 0RF divalproex 250 mg tablet,delayed release (DR/EC) 750 mg PO BEDTIME 0RF donepezil 10 mg tablet 10 mg PO DAILY@20 0RF fluticasone propionate 50 mcg/actuation spray,suspension 1 spray intranasal DAILY 0RF Rx Instructions: administer into each nostril acetaminophen [Tylenol] 325 mg tablet 650 mg PO TID 0RF dextromethorphan-guaifenesin [Ultra Tuss Safe] 10-100 mg/5 mL syrup 10 ml PO Q6H PRN (Reason: COUGH) 0RF clonidine HCl 0.1 mg tablet 0.1 mg PO Q6H PRN (Reason: Hypertension) 0RF Rx Instructions: FOR SBP >160 RECHECK 15-20 MINS AFTER ADMIN aripiprazole [Abilify] 2 mg tablet 2 mg PO DAILY@20 0RF aspirin 81 mg tablet,delayed release (DR/EC) 81 mg PO DAILY@08 0RF meloxicam 7.5 mg tablet 7.5 mg PO DAILY@08 0RF albuterol sulfate 90 mcg/actuation HFA aerosol inhaler 2 puff inhalation Q4H PRN (Reason: Shortness Of Breath) 0RF fluticasone propion-salmeterol [Advair Diskus] 100-50 mcg/dose blister with device 1 inh inhalation BID@08,20 0RF Spiriva with HandiHaler 18 mcg capsule, w/inhalation device 1 cap inhalation DAILY@08 0RF Rx Instructions: puncture 1 cap using device; one dose = 2 inhalations triamcinolone acetonide 0.1 % cream 1 applic topical TID PRN (Reason: UNKNOWN) 0RF Rx Instructions: APPLY THIN LAYER nystatin 100,000 unit/gram powder 1 applic topical DAILY 0RF metoprolol tartrate 50 mg tablet 50 mg PO DAILY 0RF Ocuvite Adult 50 Plus 250-5-1 mg capsule 1 cap PO DAILY 0RF oxycodone 5 mg tablet 5 mg PO Q6H PRN0RF pantoprazole [address] for susp in packet 40 mg PO DAILY 0RF sucralfate 100 mg/mL suspension 10 ml PO QID 0RF Rx Instructions: swish in mouth and swallow; use after food/drink benzonatate [Tessalon Perles] 100 mg capsule 100 mg PO TID PRN0RF diclofenac sodium [Voltaren Arthritis Pain] 1 % gel 4 g topical TID PRN0RF Rx Instructions: apply to single elbow, wrist or hand; for hand includes palm/fingers/back of hand ramipril [Altace] 10 mg capsule 10 mg PO DAILY 0RF donepezil 5 mg tablet 5 mg PO DAILY 0RF tamsulosin 0.4 mg capsule 0.4 mg PO DAILY 0RF loperamide [Imodium A-D] 2 mg capsule 2 mg PO Q6H PRN0RF furosemide 40 mg tablet 40 mg PO DAILY 0RF sulfamethoxazole-trimethoprim 800-160 mg tablet 1 tab PO BID Qty: 30 0RF albuterol sulfate 90 mcg/actuation Hfa Aerosol Inhaler 2 puff INHALATION QID 0RF Rx Instructions: FOR 5 DAYS (END DATE 01/03/21) Tylenol 325 mg Tablet 650 mg PO Q4H PRN (Reason: Pain) 0RF gabapentin 400 mg Capsule 400 mg PO TID 0RF Tessalon Perles 100 mg Capsule 200 mg PO TID PRN (Reason: Cough) 0RF Discharge Orders: Discharge ED (Routine); Ordered 09/11/21 Ordered By: Kamran Hawkins Referrals: Fco Pierce DO [Primary Care Provider] - Discharge Diet: Regular Discharge Activity: Increase activity as tolerated Patient Instructions: Meyer Catheter Care, Urinary Retention in Men (ED), Meyer Catheter Placement and Care (ED) Activity Restrictions/Additional Instructions: Follow-up with medical provider as directed. Case management should be contacted in the next several days to set up an appoint with Dr. García for reevaluation. Continue taking all home medications as previously prescribed. Return to the ER or your medical provider if condition worsens. Please read and understand discharge instructions. Thank you for choosing [facility] for your healthcare needs today. Please realize this is an emergency room and that we are providing you with a medical screening exam and this may not be complete and all inclusive of all the testing and or work up that you may need to determine your ailment or severity of your illness. It is very important that you follow up as instructed or that you return to the Emergency Department should you have concerns or if your condition changes or worsens in any way. Coding Level of Care Code ED Corset Fitter for Jen Salcido Exam Comprehensive
--- NOTE | 2021-09-11 19:03 | PC.NURSE ---
REPORT GIVEN TO GAYE Hernandez RN ASSUMED CARE.
[2021-09-11] MEDS: morphine 4 mg/mL SDV 1 mL IM (19:16)
[2021-09-11] MEDS: lidocaine 2% Urojet 20 mL TOPICAL (20:04)
--- NOTE | 2021-09-11 21:23 | PM.CONSULT ---
Providers/Reason For Consult Consulting Physician/Specialty*: Urology/García Reason for Consult*: Urinary retention, inability to pass Stokes catheter Requesting Physician: Kamran Hawkins, ED KATERINE Primary Care Provider: Fco Pierce DO History of Present Illness History of Present Illness Toro Peralta is a 81 year old male well-known to me for history of chronic urinary retention requiring indwelling Stokes catheter. He has not been a candidate in the past for [facility] due to his overall debilitated state. Previously he was found to have an enlarged prostate and was placed on medical therapy with persistence of retention. He was not felt to be a candidate for further escalation of the dose of alpha blockers. His last office visit was in May 2021 where he was treated with antibiotics for epididymitis. An ultrasound of the scrotum and kidneys was recommended along with a KUB and a follow-up in 2 to 3 weeks but he failed to do so due to rebecca Covid in the detention. He apparently has had his Stokes catheter changed on a routine basis. The catheter was accidentally withdrawn by being caught on some surrounding clothing and attempts at replacement of the catheter were unsuccessful. This was about a week ago. He continued to void until today when he was unable to significantly void. He was not relating any significant progressive bladder light obstructive symptoms prior to this morning when he woke up. Multiple attempts at catheter placement in the detention were unsuccessful as well were attempts in the emergency department. Was complaining of significant suprapubic pain related to urinary retention and I was consulted to evaluate. Physical exam revealed a distended bladder. He had tenderness in the suprapubic area. Atraumatic male genitalia. No bloody urethral discharge. PROCEDURE: Bedside flexible cystoscopy with urethral dilation Prepped and draped in usual sterile fashion in supine position. Covered with an extremity drape. A well-lubricated flexible cystoscope was advanced into the urethra and in the bulbar urethra a very tight pinpoint stricture was encountered. There was no active bleeding or trauma. This appears to be a well-healed traumatic event probably when the catheter was forcibly withdrawn with the balloon. There appeared to be a small opening on the dorsal aspect of the urethra and a flexible tip guidewire was able to be advanced through this easily an appropriate distance to be consistent with placement in the bladder. There was some efflux of cloudy urine around the wire. He underwent at that point sequential dilation with first 10 English, 12 English, 14 English, 16 English straight catheter was converted to nansemond indian tribe tip catheters. Each of these were passed over the wire with some resistance but not excessively. A 14 English coud? catheter was then converted to a [place]sem[place] tribe tip catheter and passed into the bladder with some difficulty but ultimately successful. Catheter was confirmed to be draining. The balloon was inflated with 10 cc and the wire was removed with the catheter then placed to dependent drainage. Tolerated procedure well without complications. He was turned back over to the emergency department for further care and disposition. Review of Systems Const: Denies: fever(s) or chills Eyes: Denies: eye discharge ENMT: Denies: hoarseness Card: Denies: chest pain or lightheadedness Resp: Denies: dyspnea or productive cough : Reports: difficulty urinating, dysuria, urinary dribbling and difficulty starting urination; Denies: hematuria Musc: Denies: neck pain Neuro: Denies: confusion or behavioral changes Psych: Denies: anxiety Endo: Denies: flushing Evans/Lymph: Denies: easy bruising or easy bleeding All/Imm: Denies: acute wheezing Medications/Allergies Home Medications Medication Instructions Recorded Confirmed Last Taken Type acetaminophen 325 mg tablet 650 mg PO TID 12/02/20 06/01/21 12/31/20 07:45 History (Tylenol) albuterol sulfate 90 mcg/actuation 2 puff INHALATION Q4H PRN 12/02/20 06/01/21 Unknown History aerosol inhaler aripiprazole 2 mg tablet (Abilify) 2 mg PO DAILY@12/02/20 06/01/21 12/30/20 History aspirin 81 mg tablet,delayed 81 mg PO DAILY@12/02/20 06/01/21 12/31/20 History release clonidine HCl 0.1 mg tablet 0.1 mg PO Q6H PRN tab 12/02/20 06/01/21 Unknown History cyanocobalamin (vitamin B-12) 500 500 mcg PO DAILY@12/02/20 06/01/21 12/31/20 History mcg tablet dextromethorphan-guaifenesin 10 10 ml PO Q6H PRN 12/02/20 06/01/21 Unknown History mg-100 mg/5 mL oral syrup (Ultra Tuss Safe) divalproex 250 mg tablet,delayed 750 mg PO BEDTIME 12/02/20 06/01/21 12/30/20 History release donepezil 10 mg tablet 10 mg PO DAILY@12/02/20 06/01/21 12/30/20 History fluticasone 100 mcg-salmeterol 50 1 inh INHALATION BID@12/02/20 06/01/21 12/31/20 07:45 History mcg/dose blistr powdr for inhalation (Advair Diskus) fluticasone propionate 50 1 spray INTRANASAL DAILY 12/02/20 06/01/21 Unknown History mcg/actuation nasal spray,suspension meloxicam 7.5 mg tablet 7.5 mg PO DAILY@12/02/20 06/01/21 12/31/20 07:45 History nystatin 100,000 unit/gram topical 1 applic TOPICAL DAILY 12/02/20 06/01/21 Unknown History powder tiotropium bromide 18 mcg capsule 1 cap INHALATION DAILY@12/02/20 06/01/21 12/31/20 07:45 History with inhalation device (Spiriva with HandiHaler) triamcinolone acetonide 0.1 % 1 applic TOPICAL TID PRN 12/02/20 06/01/21 Unknown History topical cream acetaminophen 325 mg tablet 650 mg PO Q4H PRN 12/31/20 06/01/21 Unknown History (Tylenol) albuterol sulfate 90 mcg/actuation 2 puff INHALATION QID 12/31/20 06/01/21 Unknown History aerosol inhaler benzonatate 100 mg capsule 200 mg PO TID PRN 12/31/20 06/01/21 Unknown History (Maureen Aguirre) gabapentin 400 mg capsule 400 mg PO TID 12/31/20 06/01/21 12/31/20 07:45 History benzonatate 100 mg capsule 100 mg PO TID PRN 02/22/21 06/01/21 Unknown History (Maureen Aguirre) diclofenac sodium 1 % topical gel 4 g TOPICAL TID PRN g 02/22/21 06/01/21 Unknown History (Voltaren Arthritis Pain) metoprolol tartrate 50 mg tablet 50 mg PO DAILY 02/22/21 06/01/21 Unknown History oxycodone 5 mg tablet 5 mg PO Q6H PRN 02/22/21 06/01/21 Unknown History pantoprazole 40 mg granules 40 mg PO DAILY 02/22/21 06/01/21 Unknown History delayed-release for susp in packet sucralfate 100 mg/mL oral 10 ml PO QID 02/22/21 06/01/21 Unknown History suspension vit C,E,zinc,copper-lbpky6r 250 1 cap PO DAILY 02/22/21 06/01/21 Unknown History mg-lutein 5 mg-zeaxanthin 1 mg capsule (Ocuvite Adult 50 Plus) donepezil 5 mg tablet 5 mg PO DAILY 05/24/21 06/01/21 Unknown History furosemide 40 mg tablet 40 mg PO DAILY 05/24/21 06/01/21 Unknown History loperamide 2 mg capsule (Imodium 2 mg PO Q6H PRN 05/24/21 06/01/21 Unknown History A-D) ramipril 10 mg capsule (Altace) 10 mg PO DAILY 05/24/21 06/01/21 Unknown History tamsulosin 0.4 mg capsule 0.4 mg PO DAILY 05/24/21 06/01/21 Unknown History sulfamethoxazole 800 1 tab PO BID #30 tab 06/01/21 06/01/21 Unknown Rx mg-trimethoprim 160 mg tablet Allergies Allergy/AdvReac Type Severity Reaction Status Date / Time nicotine [From Nicoderm CQ] Allergy Unknown Verified 09/11/21 17:20 oxycodone [From OxyContin] Allergy Unknown Verified 09/11/21 17:20 quetiapine [From Seroquel] Allergy Unknown Verified 09/11/21 17:20 zolpidem [From Ambien] Allergy Unknown Verified 09/11/21 17:20 PFSH Acute PFSH: Medical History BPH w urinary obs/LUTS Elevated PSA Hypertension Urinary retention Surgical History H/O cataract extraction BILATERAL H/O elbow surgery RIGHT H/O knee surgery LEFT H/O neck surgery H/O shoulder surgery Family History Mother , AT AGE 80 Hypertension Father , AT AGE 82 Heart disease Social History Smoking and tobacco status: current some day smoker Alcohol intake: current Alcohol intake frequency: holidays/special occasions only Housing: Correction Marital status: Current occupational status: retired History of recent travel: No Vitals/I&O/Wt Last Vital Signs Temp 97.8 F 09/11/21 17:17 Pulse 72 09/11/21 17:17 Resp 18 09/11/21 19:16 BP 185/97 09/11/21 17:17 Pulse Ox 92 09/11/21 19:16 Weight last 48 hrs Weight 226 lb Physical Exam Const: COMMON NORMALS: alert and well nourished GENERAL APPEARANCE: well kempt and well developed ORIENTATION/CONSCIOUSNESS: not confused OTHER: Was in discomfort related to bladder distention. HENMT: COMMON NORMALS: normocephalic and atraumatic HEAD & SCALP: normocephalic and atraumatic Eye: COMMON NORMALS: conjunctivae normal and no scleral icterus CONJUNCTIVA: Yes conjunctivae normal Neck/C-Spine: COMMON NORMALS: full ROM Lymph: LYMPHATIC: No no lymphadenopathy noted Resp: COMMON NORMALS: normal respiratory effort EFFORT & INSPECTION: No labored and No Actively coughing : OTHER: Uncircumcised phallus. Some meatal erosion secondary to chronic catheter. No discharge or bloody discharge. 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 Dilated with urethral catheter sounds. 12 English catheter placed over guidewire (nansemond indian tribe tip) Expect passive dilation. Status: Acute (3) BPH w urinary obs/LUTS: Status: Acute Plan 1. Can discharge back to the detention with Stokes catheter in place. 2. Catheter needs to be secured with a StatLock 3. We will plan on seeing him in my office late next week for catheter change to 14 or 16 English possible cystoscopy at that time. Coding Level of Care Code Acute Recycle Worker for Chg Fwd Diagnoses Urinary retention R33.9 Bulbous urethral stricture N35.912 BPH w urinary obs/LUTS N40.1; N13.8
[2021-09-11 22:25] LABS: Add Urine Microscopic? YES; Bilirubin Urine Neg (Negative); Blood Urine 3+ (Negative); Glucose Urine UA Norm (Normal); Ketones Urine Negative (Negative); Leukocyte Esterase Urine 2+ (Negative); Nitrate Urine Negative (Negative); Protein Urine 1+ (Negative); Urine Appearance SL Hazy (CLEAR); Urine Color Yellow (Yellow); Urobilinogen Urine Norm (Negative); pH Urine 6.5 (5-7)
[2021-09-11 22:30] LABS: Add Urine Culture? Yes; Bacteria Urine 2+ /hpf; RBC Urine 15-25 /hpf (0-2); Squamous Epithelial Cell Urine 0-4 /hpf (0-5); WBC Urine >100 /hpf (0-5)
--- NOTE | 2021-09-13 10:50 | DCPLANNER ---
Addendum entered by Ya Amaya 09/29/21 20:36: Patient had a follow up appointment scheduled with Dr. García - patient did attend appointment. Addendum entered by Ya Amaya 09/14/21 08:34: Patient has a follow up appointment scheduled for , September 23, 2021 at 2:[address] García. Clinic will call patient with appointment information. Original Note: school lunch manager had message to schedule a follow up appointment for patient with urology. school lunch manager sent patients information to the front office staff at urology. Patients information will be printed and reviewed. Clinic will call patient with appointment information.
== END 2021-09-11 22:45 | disposition home or self-care (01) ==
PROVIDERS: Emergency Provider Physician Assistant; PCP Internal Medicine
DX: R33.9 Retention of urine, unspecified (principal); N40.1 Benign prostatic hyperplasia with lower urinary tract symptoms; N13.8 Other obstructive and reflux uropathy; R82.90 Unspecified abnormal findings in urine; I10 Essential (primary) hypertension; F17.200 Nicotine dependence, unspecified, uncomplicated
CPT/HCPCS: 51702; 51798; 81001; 87077; 87086; 87186; 96372; 99284; J2270

== ENCOUNTER 2021-10-01 16:51 | Emergency (ER) | payer MEDICARE, MEDICAID, SELFPAY ==
[2021-10-01 17:46] VITALS: BP 190/94; PULSE 64; RESP 22; O2SAT 93; BMI 34.3
--- NOTE | 2021-10-01 17:49 | ECG_ITS ---
[facility] Test Date: 2021-10-01 Pat Name: Toro Peralta Department: Room: Gender: Male Patient Relations Specialist: : 1940 Requested By: Osiel Barba Order Number: [id number] Ric MD: Chanel Carson M.D. Measurements Intervals [place] Rate: 53 P: 52 CA: 229 QRS: 60 QRSD: 81 T: 59 QT: 420 QTc: 396 Interpretive Statements SINUS BRADYCARDIA WITH FIRST DEGREE AV BLOCK Compared to ECG 12/31/2020 17:20:01 First degree AV block now present Sinus tachycardia no longer present Electronically Signed On 10-01-2021 20:22:36 CDT by Chanel Crason M.D. [id number]
--- NOTE | 2021-10-01 17:50 | XRR_ITS ---
PROCEDURE INFORMATION: Exam: XR Chest Exam date and time: 10/01/2021 6:20 PM Age: 81 years old Clinical indication: Abnormal findings; Abnormal diagnostic tests; Abnormal ekg; Additional info: Dyspnea/cough TECHNIQUE: Imaging protocol: XR of the chest. Views: 1 view. COMPARISON: CR XR chest 1V portable [id number] 12/31/2020 2:04 PM FINDINGS: Lungs: Mild pulmonary vascular congestion. Left lower lobe atelectasis versus minimal infiltrate. Pleural spaces: Unremarkable. No pleural effusion. No pneumothorax. Heart/Mediastinum: Unremarkable. No cardiomegaly. Bones/joints: Unremarkable. XR/XR chest 1V portable [id number] IMPRESSION: 1. Mild pulmonary vascular congestion. 2. Left lower lobe atelectasis versus minimal infiltrate.
--- NOTE | 2021-10-01 17:51 | ED_ITS ---
Documented by User: Osiel Steward DO 10/02/21 07:58 HPI - General Adult General: Chief complaint: General Medical Stated complaint: ELEVATED WBC Time Seen by Provider: 10/01/21 17:48 PFSH ED PFSH: Medical History BPH w urinary obs/LUTS Elevated PSA Hypertension Urinary retention Surgical History H/O cataract extraction BILATERAL H/O elbow surgery RIGHT H/O knee surgery LEFT H/O neck surgery H/O shoulder surgery Family History Mother , AT AGE 80 Hypertension Father , AT AGE 82 Heart disease Social History Smoking and tobacco status: current some day smoker Alcohol intake: current Alcohol intake frequency: holidays/special occasions only Housing: Correction Marital status: Current occupational status: retired History of recent travel: No Course Vital Signs: Vital signs: Vital Signs Pulse Rate 65 10/01/21 21:39 Respiratory Rate 18 10/01/21 21:39 Blood Pressure 138/77 10/01/21 21:39 Pulse Oximetry 98 10/01/21 21:39 MDM - General Adult Medical Decision Making New the end of the shift I signed up for this patient but was not able to get in and see him. Change of shift occurred to Dr. Cherry seen the patient I did not participate in his care. White blood cell count of 82,500. Hemoglobin of 10. Platelets 278. Sodium is 126, which is actually improved from her prior sodium level. The patient is basically asymptomatic. He has no hypercoagulable symptoms. The concern was for blast crisis. I spoke with oncology, and went over the cell differential with the oncologist. He notes with the indices listed, the fact that the hem oglobin is still 10, and platelet count is normal, this is likely not an acute blast crisis. He notes that if the patient is truly asymptomatic, which she seems to be, he would treat this patient as an outpatient. We will have case management call the patient on Monday to set up an oncology appointment in clinic this coming week. Family is counseled. They know to return for any symptoms. Lab Data : 10/01/21 18:11 10/01/21 18:11 Radiology Impressions Chest X-Ray 10/01/21 17:50 IMPRESSION: 1. Mild pulmonary vascular congestion. 2. Left lower lobe atelectasis versus minimal infiltrate. Laboratory Results WBC 82.5 10^3/uL (4.0-10.0) H* 10/01/21 18:11 RBC 3.25 10^6/uL (4.1-5.3) L 10/01/21 18:11 Hgb 9.8 g/dL (11.7-16.6) L 10/01/21 18:11 Hct 30.2 % (42.0-52.0) L 10/01/21 18:11 MCV 92.9 fl (80-94) 10/01/21 18:11 MCH 30.2 pg (28.0-34.0) 10/01/21 18:11 MCHC 32.5 g/dL (30.0-36.0) 10/01/21 18:11 RDW 18.7 % (12.1-15.1) H 10/01/21 18:11 Plt Count 278 10^3/cmm (130-400) 10/01/21 18:11 MPV 10.2 fL (7.4-10.4) 10/01/21 18:11 Lymph % (Auto) Not Reportable 10/01/21 18:11 [place] % (Auto) Not Reportable 10/01/21 18:11 Lymph # (Auto) Not Reportable 10/01/21 18:11 [place] # (Auto) Not Reportable 10/01/21 18:11 Total Counted 100 (0-100) 10/01/21 18:11 Atypical Lymphs % 0.0 % (0-5) 10/01/21 18:11 Absolute Neutrophils 47.9 10^3/cmm (1.4-6.5) H 10/01/21 18:11 Segmented Neutrophils 41 % 10/01/21 18:11 Abs Segm Neuts (Man) 33.8 10/cmm (1.6-7.1) H 10/01/21 18:11 Band Neutrophils 17.0 % 10/01/21 18:11 Abs Band Neuts (Man) 14.0 10^3/cmm (0.0-1.2) H 10/01/21 18:11 Absolute Lymphocytes 14.9 10^3/cmm (1.2-3.4) H 10/01/21 18:11 Lymphocytes (Manual) 18 % 10/01/21 18:11 Monocytes (Manual) 0.0 % 10/01/21 18:11 Absolute Monocytes 0.0 10^3/cmm (0.1-0.6) L 10/01/21 18:11 Eosinophils (Manual) 5 % 10/01/21 18:11 Absolute Eosinophils 4.1 10^3/cmm (0.0-0.7) H 10/01/21 18:11 Basophils (Manual) 0.0 % 10/01/21 18:11 Absolute Basophils 0.0 10^3/cmm (0.0-0.2) 10/01/21 18:11 Metamyelocytes 7.0 % 10/01/21 18:11 Myelocytes 10.0 % 10/01/21 18:11 Pathologist Review Yes 10/01/21 18:11 Blast Cells 2 % (0-0) H* 10/01/21 18:11 Platelet Estimate Normal (Normal) 10/01/21 18:11 Sodium 126 mmol/L (136-145) L 10/01/21 18:11 Potassium 4.1 mmol/L (3.5-5.1) 10/01/21 18:11 Chloride 92 mmol/L (98-107) L 10/01/21 18:11 Carbon Dioxide 20 mmol/L (22-29) L 10/01/21 18:11 Anion Gap 18.1 (5-19) 10/01/21 18:11 BUN 15 mg/dL (8-23) 10/01/21 18:11 Creatinine 1.1 mg/dL (0.7-1.2) 10/01/21 18:11 GFR Calculation Not Reportable 10/01/21 18:11 Glucose 97 mg/dL (65-115) 10/01/21 18:11 Calculated Osmolality 263 mOsm/kg (285-295) L 10/01/21 18:11 Calcium 9.3 mg/dL (8.5-10.5) 10/01/21 18:11 Total Bilirubin 0.3 mg/dL (0.15-1.2) 10/01/21 18:11 AST 16 U/L (0-40) 10/01/21 18:11 ALT 11 U/L (0-41) 10/01/21 18:11 Alkaline Phosphatase 36 IU/L (40-130) L 10/01/21 18:11 NT-Pro-B Natriuret Pep 1209 pg/mL (0-450) H 10/01/21 18:11 Total Protein 7.3 g/dL (6.6-8.7) 10/01/21 18:11 Albumin 4.1 g/dL (3.5-5.2) 10/01/21 18:11 Globulin 3.2 g/dL (1.3-4.6) 10/01/21 18:11 Urine Color Yellow (Yellow) 10/01/21 18:01 Urine Appearance Clear (CLEAR) 10/01/21 18:01 Urine pH 6 (5-7) 10/01/21 18:01 Ur Specific [place] 1.010 (1.005-1.030) 10/01/21 18:01 Urine Protein Neg (Negative) 10/01/21 18:01 Urine Glucose (UA) Norm (Normal) 10/01/21 18: Urine Ketones Negative (Negative) 10/01/21 18: Urine Blood 2+ (Negative) H 10/01/21 18:01 Urine Nitrate Positive (Negative) H 10/01/21 18:01 Urine Bilirubin Neg (Negative) 10/01/21 18:01 Urine Urobilinogen Norm mg/dL (Negative) 10/01/21 18:01 Ur Leukocyte Esterase 1+ (Negative) H 10/01/21 18:01 Urine RBC 10-15 /hpf (0-2) H 10/01/21 18:01 Urine WBC 10-15 /hpf (0-5) H 10/01/21 18:01 Ur Squamous Epith Cells 0-4 /hpf (0-5) H 10/01/21 18:01 Amorphous Sediment 1+ /hpf 10/01/21 18:01 Urine Bacteria 2+ /hpf (NONE) H 10/01/21 18:01 Discharge Plan Discharge Patient Disposition: Home Clinical Impression: Leukocytosis (leucocytosis), Acute UTI Condition: Stable Prescriptions: New Macrobid 100 mg capsule 100 mg PO BID 7 Days Qty: 14 0RF Rx Instructions: must administer with a meal/food No Action cyanocobalamin (vitamin B-12) 500 mcg tablet 500 mcg PO DAILY@08 0RF divalproex 250 mg tablet,delayed release (DR/EC) 750 mg PO BEDTIME 0RF donepezil 10 mg tablet 10 mg PO DAILY@20 0RF fluticasone propionate 50 mcg/actuation spray,suspension 1 spray intranasal DAILY 0RF Rx Instructions: administer into each nostril acetaminophen [Tylenol] 325 mg tablet 650 mg PO TID 0RF dextromethorphan-guaifenesin [Ultra Tuss Safe] 10-100 mg/5 mL syrup 10 ml PO Q6H PRN (Reason: COUGH) 0RF clonidine HCl 0.1 mg tablet 0.1 mg PO Q6H PRN (Reason: Hypertension) 0RF Rx Instructions: FOR SBP >160 RECHECK 15-20 MINS AFTER ADMIN aripiprazole [Abilify] 2 mg tablet 2 mg PO DAILY@20 0RF aspirin 81 mg tablet,delayed release (DR/EC) 81 mg PO DAILY@08 0RF meloxicam 7.5 mg tablet 7.5 mg PO DAILY@08 0RF albuterol sulfate 90 mcg/actuation HFA aerosol inhaler 2 puff inhalation Q4H PRN (Reason: Shortness Of Breath) 0RF fluticasone propion-salmeterol [Advair Diskus] 100-50 mcg/dose blister with device 1 inh inhalation BID@08,20 0RF Spiriva with HandiHaler 18 mcg capsule, w/inhalation device 1 cap inhalation DAILY@08 0RF Rx Instructions: puncture 1 cap using device; one dose = 2 inhalations triamcinolone acetonide 0.1 % cream 1 applic topical TID PRN (Reason: UNKNOWN) 0RF Rx Instructions: APPLY THIN LAYER nystatin 100,000 unit/gram powder 1 applic topical DAILY 0RF metoprolol tartrate 50 mg tablet 50 mg PO DAILY 0RF Ocuvite Adult 50 Plus 250-5-1 mg capsule 1 cap PO DAILY 0RF oxycodone 5 mg tablet 5 mg PO Q6H PRN0RF pantoprazole [address] for susp in packet 40 mg PO DAILY 0RF sucralfate 100 mg/mL suspension 10 ml PO QID 0RF Rx Instructions: swish in mouth and swallow; use after food/drink benzonatate [Tessalon Perles] 100 mg capsule 100 mg PO TID PRN0RF diclofenac sodium [Voltaren Arthritis Pain] 1 % gel 4 g topical TID PRN0RF Rx Instructions: apply to single elbow, wrist or hand; for hand includes palm/fingers/back of hand ramipril [Altace] 10 mg capsule 10 mg PO DAILY 0RF donepezil 5 mg tablet 5 mg PO DAILY 0RF tamsulosin 0.4 mg capsule 0.4 mg PO DAILY 0RF loperamide [Imodium A-D] 2 mg capsule 2 mg PO Q6H PRN0RF furosemide 40 mg tablet 40 mg PO DAILY 0RF sulfamethoxazole-trimethoprim 800-160 mg tablet 1 tab PO BID Qty: 30 0RF albuterol sulfate 90 mcg/actuation Hfa Aerosol Inhaler 2 puff INHALATION QID 0RF Rx Instructions: FOR 5 DAYS (END DATE 01/03/21) Tylenol 325 mg Tablet 650 mg PO Q4H PRN (Reason: Pain) 0RF gabapentin 400 mg Capsule 400 mg PO TID 0RF Tessalon Perles 100 mg Capsule 200 mg PO TID PRN (Reason: Cough) 0RF Discharge Orders: Discharge ED (Routine); Ordered 10/01/21 Ordered By: Inderjit Cherry Referrals: Fco Pierce DO [Primary Care Provider] - 1-3 days Discharge Diet: Usual diet Discharge Activity: Increase activity as tolerated Patient Instructions: Leukocytosis (ED), Urinary Tract Infection in Older Adults (ED) Activity Restrictions/Additional Instructions: Case management will call you Monday to let you know when to come to oncology for follow-up. In the meantime, return to the emergency room for development of vision changes, worsening mental status, weakness to 1 side of the body, chest pain acutely, any other concerning symptoms. Antibiotics for the urinary tract infection as directed. Coding Level of Care Code ED Safety Companion for Chg Fwd Exam Comprehensive Documented by User: Inderjit Cherry DO 10/02/21 15:17 HPI - General Adult 2 General: Chief complaint: General Medical Stated complaint: ELEVATED WBC Time Seen by Provider: 10/01/21 17:48 Source: patient and family History of Present Illness: 81-year-old gentleman with no prior history of known cancer. He presents with a high white blood cell count for the past several days. He lives in an assisted living facility in [facility]. This evidently was found on 10/01. Physician there was unable to get him an appointment with oncology. He presents, complaining of only chronic leg pain. No acute symptoms. No fever, no chills, no increase in his pain, no mental status changes. He simply states he was told to come in because of the high white blood cell count. Onset (ago): day(s) Location: lower extremity Radiation: non-radiation Severity: moderate Quality: other Pain Consistency: constant Relieving factors: none Exacerbating factors: none Associated symptoms: Deny chest pain, confusion, cough, dyspnea, fevers/chills, headache(s), short of breath, vomiting or weakness Review of Systems Const: Denies: fever(s), chills, body aches, change in appetite or change in weight Card: Denies: chest pain Resp: Denies: dyspnea, productive cough or non-productive cough GI: Denies: abdominal pain or vomiting : Denies: difficulty urinating Neuro: Denies: headache(s) or confusion PFSH ED PFSH: Medical History BPH w urinary obs/LUTS Elevated PSA Hypertension Urinary retention Surgical History H/O cataract extraction BILATERAL H/O elbow surgery RIGHT H/O knee surgery LEFT H/O neck surgery H/O shoulder surgery Family History Mother , AT AGE 80 Hypertension Father , AT AGE 82 Heart disease Social History Smoking and tobacco status: current some day smoker Alcohol intake: current Alcohol intake frequency: holidays/special occasions only Housing: Correction Marital status: Current occupational status: retired History of recent travel: No Physical Exam Const: GENERAL APPEARANCE: cooperative and frail appearing NUTRITIONAL APPEARANCE: obese HENMT: COMMON NORMALS: normocephalic, atraumatic and Normal external nose present HEAD & SCALP: normocephalic and atraumatic FACE & SINUS: normal facial exam NOSE: Normal external nose present TEETH & GINGIVA: Yes poor dentition Eye: COMMON NORMALS: Equal, round and reactive pupils present and EOMs intact bilaterally PUPIL: Yes Equal, round and reactive pupils present Chest: COMMONS NORMALS: normal inspection of the chest Resp: COMMON NORMALS: normal respiratory effort, No use of accessory muscles and clear to auscultation bilaterally AUSCULTATION: clear to auscultation bi laterally Cardio: COMMON NORMALS: regular rate and regular rhythm RATE: regular rate RHYTHM: regular rhythm GI: COMMON NORMALS: Soft to palpation PALPATION: Yes Soft to palpation Extremity: GENERAL: Yes edema (2+ bilat) Course Consultations: Consultation #1: Maximiliano Time: 20:05 Vital Signs: Vital signs: Vital Signs Pulse Rate 65 10/01/21 21:39 Respiratory Rate 18 10/01/21 21:39 Blood Pressure 138/77 10/01/21 21:39 Pulse Oximetry 98 10/01/21 21:39 MDM - General Adult Medical Decision Making White blood cell count of 82,500. Hemoglobin of 10. Platelets 278. Sodium is 126, which is actually improved from her prior sodium level. The patient is basically asymptomatic. He has no hypercoagulable symptoms. The concern was for blast crisis. I spoke with oncology, and went over the cell differential with the oncologist. He notes with the indices listed, the fact that the hemoglobin is still 10, and platelet count is normal, this is likely not an acute blast crisis. He notes that if the patient is truly asymptomatic, which she seems to be, he would treat this patient as an outpatient. We will have case management call the patient on Monday to set up an oncology appointment in clinic this coming week. Family is counseled. They know to return for any symptoms. Lab Data : 10/01/21 18:11 10/01/21 18:11 Radiology Impressions Chest X-Ray 10/01/21 17:50 IMPRESSION: 1. Mild pulmonary vascular congestion. 2. Left lower lobe atelectasis versus minimal infiltrate. Laboratory Results WBC 82.5 10^3/uL (4.0-10.0) H* 10/01/21 18:11 RBC 3.25 10^6/uL (4.1-5.3) L 10/01/21 18:11 Hgb 9.8 g/dL (11.7-16.6) L 10/01/21 18:11 Hct 30.2 % (42.0-52.0) L 10/01/21 18:11 MCV 92.9 fl (80-94) 10/01/21 18:11 MCH 30.2 pg (28.0-34.0) 10/01/21 18:11 MCHC 32.5 g/dL (30.0-36.0) 10/01/21 18:11 RDW 18.7 % (12.1-15.1) H 10/01/21 18:11 Plt Count 278 10^3/cmm (130-400) 10/01/21 18:11 MPV 10.2 fL (7.4-10.4) 10/01/21 18:11 Lymph % (Auto) Not Reportable 10/01/21 18:11 [place] % (Auto) Not Reportable 10/01/21 18:11 Lymph # (Auto) Not Reportable 10/01/21 18:11 [place] # (Auto) Not Reportable 10/01/21 18:11 Total Counted 100 (0-100) 10/01/21 18:11 Atypical Lymphs % 0.0 % (0-5) 10/01/21 18:11 Absolute Neutrophils 47.9 10^3/cmm (1.4-6.5) H 10/01/21 18:11 Segmented Neutrophils 41 % 10/01/21 18:11 Abs Segm Neuts (Man) 33.8 10/cmm (1.6-7.1) H 10/01/21 18:11 Band Neutrophils 17.0 % 10/01/21 18:11 Abs Band Neuts (Man) 14.0 10^3/cmm (0.0-1.2) H 10/01/21 18:11 Absolute Lymphocytes 14.9 10^3/cmm (1.2-3.4) H 10/01/21 18:11 Lymphocytes (Manual) 18 % 10/01/21 18:11 Monocytes (Manual) 0.0 % 10/01/21 18:11 Absolute Monocytes 0.0 10^3/cmm (0.1-0.6) L 10/01/21 18:11 Eosinophils (Manual) 5 % 10/01/21 18:11 Absolute Eosinophils 4.1 10^3/cmm (0.0-0.7) H 10/01/21 18:11 Basophils (Manual) 0.0 % 10/01/21 18:11 Absolute Basophils 0.0 10^3/cmm (0.0-0.2) 10/01/21 18:11 Metamyelocytes 7.0 % 10/01/21 18:11 Myelocytes 10.0 % 10/01/21 18:11 Pathologist Review Yes 10/01/21 18:11 Blast Cells 2 % (0-0) H* 10/01/21 18:11 Platelet Estimate Normal (Normal) 10/01/21 18:11 Sodium 126 mmol/L (136-145) L 10/01/21 18:11 Potassium 4.1 mmol/L (3.5-5.1) 10/01/21 18:11 Chloride 92 mmol/L (98-107) L 10/01/21 18:11 Carbon Dioxide 20 mmol/L (22-29) L 10/01/21 18:11 Anion Gap 18.1 (5-19) 10/01/21 18:11 BUN 15 mg/dL (8-23) 10/01/21 18:11 Creatinine 1.1 mg/dL (0.7-1.2) 10/01/21 18:11 GFR Calculation Not Reportable 10/01/21 18:11 Glucose 97 mg/dL (65-115) 10/01/21 18:11 Calculated Osmolality 263 mOsm/kg (285-295) L 10/01/21 18:11 Calcium 9.3 mg/dL (8.5-10.5) 10/01/21 18:11 Total Bilirubin 0.3 mg/dL (0.15-1.2) 10/01/21 18:11 AST 16 U/L (0-40) 10/01/21 18:11 ALT 11 U/L (0-41) 10/01/21 18:11 Alkaline Phosphatase 36 IU/L (40-130) L 10/01/21 18:11 NT-Pro-B Natriuret Pep 1209 pg/mL (0-450) H 10/01/21 18:11 Total Protein 7.3 g/dL (6.6-8.7) 10/01/21 18:11 Albumin 4.1 g/dL (3.5-5.2) 10/01/21 18:11 Globulin 3.2 g/dL (1.3-4.6) 10/01/21 18:11 Urine Color Yellow (Yellow) 10/01/21 18:01 Urine Appearance Clear (CLEAR) 10/01/21 18:01 Urine pH 6 (5-7) 10/01/21 18:01 Ur Specific [place] 1.010 (1.005-1.030) 10/01/21 18:01 Urine Protein Neg (Negative) 10/01/21 18:01 Urine Glucose (UA) Norm (Normal) 10/01/21 18: Urine Ketones Negative (Negative) 10/01/21 18:01 Urine Blood 2+ (Negative) H 10/01/21 18:01 Urine Nitrate Positive (Negative) H 10/01/21 18:01 Urine Bilirubin Neg (Negative) 10/01/21 18: Urine Urobilinogen Norm mg/dL (Negative) 10/01/21 18:01 Ur Leukocyte Esterase 1+ (Negative) H 10/01/21 18:01 Urine RBC 10-15 /hpf (0-2) H 10/01/21 18:01 Urine WBC 10-15 /hpf (0-5) H 10/01/21 18:01 Ur Squamous Epith Cells 0-4 /hpf (0-5) H 10/01/21 18:01 Amorphous Sediment 1+ /hpf 10/01/21 18:01 Urine Bacteria 2+ /hpf (NONE) H 10/01/21 18:01 Discharge Plan Discharge Patient Disposition: Home Clinical Impression: Leukocytosis (leucocytosis), Acute UTI Condition: Stable Prescriptions: New Macrobid 100 mg capsule 100 mg PO BID 7 Days Qty: 14 0RF Rx Instructions: must administer with a meal/food No Action cyanocobalamin (vitamin B-12) 500 mcg tablet 500 mcg PO DAILY@08 0RF divalproex 250 mg tablet,delayed release (DR/EC) 750 mg PO BEDTIME 0RF donepezil 10 mg tablet 10 mg PO DAILY@20 0RF fluticasone propionate 50 mcg/actuation spray,suspension 1 spray intranasal DAILY 0RF Rx Instructions: administer into each nostril acetaminophen [Tylenol] 325 mg tablet 650 mg PO TID 0RF dextromethorphan-guaifenesin [Ultra Tuss Safe] 10-100 mg/5 mL syrup 10 ml PO Q6H PRN (Reason: COUGH) 0RF clonidine HCl 0.1 mg tablet 0.1 mg PO Q6H PRN (Reason: Hypertension) 0RF Rx Instructions: FOR SBP >160 RECHECK 15-20 MINS AFTER ADMIN aripiprazole [Abilify] 2 mg tablet 2 mg PO DAILY@20 0RF aspirin 81 mg tablet,delayed release (DR/EC) 81 mg PO DAILY@08 0RF meloxicam 7.5 mg tablet 7.5 mg PO DAILY@08 0RF albuterol sulfate 90 mcg/actuation HFA aerosol inhaler 2 puff inhalation Q4H PRN (Reason: Shortness Of Breath) 0RF fluticasone propion-salmeterol [Advair Diskus] 100-50 mcg/dose blister with device 1 inh inhalation BID@08,20 0RF Spiriva with HandiHaler 18 mcg capsule, w/inhalation device 1 cap inhalation DAILY@08 0RF Rx Instructions: puncture 1 cap using device; one dose = 2 inhalations triamcinolone acetonide 0.1 % cream 1 applic topical TID PRN (Reason: UNKNOWN) 0RF Rx Instructions: APPLY THIN LAYER nystatin 100,000 unit/gram powder 1 applic topical DAILY 0RF metoprolol tartrate 50 mg tablet 50 mg PO DAILY 0RF Ocuvite Adult 50 Plus 250-5-1 mg capsule 1 cap PO DAILY 0RF oxycodone 5 mg tablet 5 mg PO Q6H PRN0RF pantoprazole [address] for susp in packet 40 mg PO DAILY 0RF sucralfate 100 mg/mL suspension 10 ml PO QID 0RF Rx Instructions: swish in mouth and swallow; use after food/drink benzonatate [Tessalon Perles] 100 mg capsule 100 mg PO TID PRN0RF diclofenac sodium [Voltaren Arthritis Pain] 1 % gel 4 g topical TID PRN0RF Rx Instructions: apply to single elbow, wrist or hand; for hand includes palm/fingers/back of hand ramipril [Altace] 10 mg capsule 10 mg PO DAILY 0RF donepezil 5 mg tablet 5 mg PO DAILY 0RF tamsulosin 0.4 mg capsule 0.4 mg PO DAILY 0RF loperamide [Imodium A-D] 2 mg capsule 2 mg PO Q6H PRN0RF furosemide 40 mg tablet 40 mg PO DAILY 0RF sulfamethoxazole-trimethoprim 800-160 mg tablet 1 tab PO BID Qty: 30 0RF albuterol sulfate 90 mcg/actuation Hfa Aerosol Inhaler 2 puff INHALATION QID 0RF Rx Instructions: FOR 5 DAYS (END DATE 01/03/21) Tylenol 325 mg Tablet 650 mg PO Q4H PRN (Reason: Pain) 0RF gabapentin 400 mg Capsule 400 mg PO TID 0RF Tessalon Perles 100 mg Capsule 200 mg PO TID PRN (Reason: Cough) 0RF Discharge Orders: Discharge ED (Routine); Ordered 10/01/21 Ordered By: Inderjit Cherry Referrals: Fco Pierce DO [Primary Care Provider] - 1-3 days Discharge Diet: Usual diet Discharge Activity: Increase activity as tolerated Patient Instructions: Leukocytosis (ED), Urinary Tract Infection in Older Adults (ED) Activity Restrictions/Additional Instructions: Case management will call you Monday to let you know when to come to oncology for follow-up. In the meantime, return to the emergency room for development of vision changes, worsening mental status, weakness to 1 side of the body, chest pain acutely, any other concerning symptoms. Antibiotics for the urinary tract infection as directed. Coding Level of Care Code ED Safety Companion for Jen Fwd Exam Comprehensive
[2021-10-01 17:57] VITALS: BP 156/70; PULSE 60; O2SAT 96
[2021-10-01 18:27] LABS: Bilirubin Urine Neg (Negative); Blood Urine 2+ (Negative); Glucose Urine UA Norm (Normal); Ketones Urine Negative (Negative); Leukocyte Esterase Urine 1+ (Negative); Nitrate Urine Positive (Negative); Protein Urine Neg (Negative); Urine Appearance Clear (CLEAR); Urine Color Yellow (Yellow); Urobilinogen Urine Norm (Negative); pH Urine 6 (5-7)
[2021-10-01 18:28] LABS: Add Urine Microscopic? YES
[2021-10-01 18:30] LABS: Add Urine Culture? Yes; Amorphous Sediment Urine 1+ /hpf; Bacteria Urine 2+ /hpf; Squamous Epithelial Cell Urine 0-4 /hpf (0-5)
[2021-10-01 18:36] LABS: Hematocrit 30.2 % (42.0-52.0); Hemoglobin 9.8 g/dL (11.7-16.6); Mean Corpuscular HGB Conc 32.5 g/dL (30.0-36.0); Mean Corpuscular Hemoglobin 30.2 pg (28.0-34.0); Mean Corpuscular Volume 92.9 fl (80-94); Mean Platelet Volume 10.2 fL (7.4-10.4); Platelet Count 278 10^3/cmm (130-400); Red Blood Count 3.25 10^6/uL (4.1-5.3); Red Cell Distribution Width 18.7 % (12.1-15.1)
[2021-10-01 19:15] LABS: Alanine Aminotransferase 11 U/L (0-41); Albumin Level 4.1 g/dL (3.5-5.2); Alkaline Phosphatase 36 IU/L (40-130); Anion Gap 18.1 (5-19); Aspartate Amino Transferase 16 U/L (0-40); Blood Urea Nitrogen 15 mg/dL (8-23); Calcium 9.3 mg/dL (8.5-10.5); Carbon Dioxide 20 mmol/L (22-29); Chloride 92 mmol/L (98-107); Globulin 3.2 g/dL (1.3-4.6); Glucose 97 mg/dL (65-115); Osmolality Calculated 263 mOsm/kg (285-295); Potassium 4.1 mmol/L (3.5-5.1); Slide Review Slide Review Perform; Sodium 126 mmol/L (136-145); Total Bilirubin 0.3 mg/dL (0.15-1.2); Total Protein 7.3 g/dL (6.6-8.7)
[2021-10-01 19:16] LABS: White Blood Count 82.5 10^3/uL (4.0-10.0)
[2021-10-01 19:27] LABS: Total Cells Counted 100 (0-100)
[2021-10-01 19:28] LABS: Absolute Eosinophils 4.1 10^3/cmm (0.0-0.7); Absolute Segmented Neutrophil 33.8 10/cmm (1.6-7.1); Eosinophils 5 %; Lymphocytes 18 %; Lymphocytes Absolute 14.9 10^3/cmm (1.2-3.4); Segmented Neutrophils 41 %
[2021-10-01 19:29] LABS: Absolute Neutrophil 47.9 10^3/cmm (1.4-6.5); Blastocytes 2 % (0-0); Platelet Estimate Normal (Normal)
[2021-10-01 19:30] LABS: Pathology Refferal Yes
[2021-10-01 19:54] VITALS: BP 144/69; PULSE 63; RESP 18; O2SAT 98
--- NOTE | 2021-10-01 19:59 | PC.NURSE ---
Critical lab WBC 82.[address] Cherry.
[2021-10-01 20:17] LABS: NT Pro B Type Natriuretic Pept 1209 pg/mL (0-450)
[2021-10-01 21:39] VITALS: BP 138/77; PULSE 65; RESP 18; O2SAT 98
--- NOTE | 2021-10-04 11:38 | DCPLANNER ---
Addendum entered by Ya Amaya 10/15/21 08:46: Patient had a follow up appointment scheduled with Dr. Viera at oncology - patient did attend appointment. Addendum entered by Ya Amaya 10/06/21 22:48: Patient has a follow up appointment scheduled with Dr. Viera for September at 3:00. Clinic will call patient with appointment information. Original Note: food and beverage outlets manager had message to schedule a follow up appointment for patient with oncology. food and beverage outlets manager called Anika, information technology coordinator at oncology to refer patient. food and beverage outlets manager gave clinic patients information. food and beverage outlets manager was told that patients information will be printed and reviewed. Clinic will call patient with appointment information.
[2021-10-06 06:49] LABS: Leukemia Profile (BBPL) See Report; Lymphoma Profile (BBPL) See Report
== END 2021-10-01 21:41 | disposition home or self-care (01) ==
PROVIDERS: Family Medicine; Emergency Provider Emergency Medicine; PCP Internal Medicine
DX: D72.829 Elevated white blood cell count, unspecified (principal); N39.0 Urinary tract infection, site not specified; I10 Essential (primary) hypertension; F17.200 Nicotine dependence, unspecified, uncomplicated
CPT/HCPCS: 71045; 80053; 80503; 81001; 83880; 85007; 85025; 87077; 87086; 87186; 88184; 88185; 93005; 99284

== ENCOUNTER 2021-10-07 12:53 | Oncology outpatient (recurring) (ONCR) | payer MEDICARE, MEDICAID, SELFPAY ==
[2021-10-07 16:04] LABS: Hematocrit 32.2 % (42.0-52.0); Hemoglobin 10.9 g/dL (11.7-16.6); Mean Corpuscular HGB Conc 33.9 g/dL (30.0-36.0); Mean Corpuscular Hemoglobin 30.6 pg (28.0-34.0); Mean Corpuscular Volume 90.4 fl (80-94); Mean Platelet Volume 9.7 fL (7.4-10.4); Platelet Count 255 10^3/cmm (130-400); Red Blood Count 3.56 10^6/uL (4.1-5.3); Red Cell Distribution Width 18.9 % (12.1-15.1)
[2021-10-07 17:13] LABS: Alanine Aminotransferase 15 U/L (0-41); Albumin Level 4.7 g/dL (3.5-5.2); Alkaline Phosphatase 37 IU/L (40-130); Aspartate Amino Transferase 21 U/L (0-40); Blood Urea Nitrogen 18 mg/dL (8-23); Calcium 9.5 mg/dL (8.5-10.5); Carbon Dioxide 20 mmol/L (22-29); Chloride 89 mmol/L (98-107); Globulin 3.5 g/dL (1.3-4.6); Glucose 87 mg/dL (65-115); Iron 76 ug/dL (59-158); Osmolality Calculated 261 mOsm/kg (285-295); Sodium 125 mmol/L (136-145); Total Bilirubin 0.3 mg/dL (0.15-1.2); Total Iron Binding Capacity 344 mcg/dl; Total Protein 8.2 g/dL (6.6-8.7); Unsaturated Iron Binding 268 ug/dL (112-347); Uric Acid 7.9 mg/dL (3.4-7.0)
[2021-10-07 17:19] LABS: Anion Gap 20.4 (5-19); Potassium 4.4 mmol/L (3.5-5.1)
[2021-10-07 17:46] LABS: Vitamin B12 > 2000 pg/mL (232-1245)
[2021-10-07 17:54] LABS: Lactate Dehydrogenase 497 U/L (135-225)
[2021-10-07 18:32] LABS: LAB Peripheral Smear Sent for Review
[2021-10-07 19:04] LABS: Absolute Eosinophils 0.9 10^3/cmm (0.0-0.7); Absolute Neutrophil 61.8 10^3/cmm (1.4-6.5); Absolute Segmented Neutrophil 39.9 10/cmm (1.6-7.1); Band Neutrophils Absolute 21.9 10^3/cmm (0.0-1.2); Eosinophils 1 %; Lymphocytes 6 %; Platelet Estimate Normal (Normal); Segmented Neutrophils 40 %; Slide Review Slide Review Perform; Total Cells Counted 100 (0-100)
[2021-10-08 09:33] LABS: White Blood Count 99.7 10^3/uL (4.0-10.0)
== END 2021-10-26 23:59 | disposition home or self-care (01) ==
LOC: ONCMED 12:54
PROVIDERS: PCP Internal Medicine; Visit Provider Internal Medicine Medical Oncology
DX: D64.9 Anemia, unspecified (principal); D72.829 Elevated white blood cell count, unspecified; F17.200 Nicotine dependence, unspecified, uncomplicated; I10 Essential (primary) hypertension; Z79.899 Other long term (current) drug therapy
CPT/HCPCS: 80053; 82607; 83540; 83550; 83615; 84550; 85007; 85025; 88374; 99204; 99999

== ENCOUNTER 2021-10-26 07:53 | Outpatient (CLI) | payer MEDICARE, MEDICAID, SELFPAY ==
--- NOTE | 2021-10-26 08:01 | US_ITS ---
WS: [id number] Bilateral renal ultrasound, 10/26/2021 Clinical Data: URINARY RETENTION Comparison: None. Findings: The right kidney measures 12.2 cm x 4.0 cm x 4.8 cm and the left kidney is 9.9 cm x 2.9 cm x 4.3 cm. There are no cysts, masses or hydronephrosis. The renal cortical margin is normal. No renal calculi a re seen. The abdominal aorta and inferior vena cava show no vascular abnormalities. The bladder was scanned and was not remarkable. US/US renal BI* [id number] Impression: Negative bilateral renal ultrasound.
== END 2021-10-26 07:54 | disposition home or self-care (01) ==
LOC: RAD 07:55
PROVIDERS: PCP Internal Medicine; Visit Provider Urology
DX: R33.9 Retention of urine, unspecified (principal); N35.912 Unspecified bulbous urethral stricture, male; N40.1 Benign prostatic hyperplasia with lower urinary tract symptoms; N13.8 Other obstructive and reflux uropathy
CPT/HCPCS: 51702; 76770; 99213